=== PATIENT | male | born 1960 | race African-American/Black ===

== ENCOUNTER 2017-04-05 18:04 | Emergency (ER) | payer OTHER ==
[~2017-04-05] VITALS: Ht 180.3 cm; Wt 104.3 kg
[2017-04-05 18:28] VITALS: BP 110/60
[2017-04-05 19:08] LABS: Basophils # (auto) 0 uL; Basophils % (auto) 0.7 % (0.0-2.0); Eosinophils # (auto) 0.1 uL; Hematocrit 40.1 % (41.0-53.0); Hemoglobin 13.2 g/dL (13.5-17.5); Lymphocytes # (auto) 2.1 uL; Lymphocytes % (auto) 30.5 % (10.0-50.0); Mean Corpuscular Hemoglobin 27.1 pg (28.0-32.0); Mean Corpuscular Hgb Conc. 33.1 g/dL (32.0-36.0); Mean Corpuscular Volume 82.1 fL (80.0-100.0); Monocytes # (auto) 0.5 uL; Monocytes % (auto) 7.7 % (0.0-12.0); Neutrophils % (auto) 59.1 % (37.0-80.0); Nucleated Red Blood Cells % 0.1 %; Platelet Count (auto) 301 10^3/uL (140-450); Red Blood Cells 4.88 10^6/uL (4.5-5.90); Red Cell Distribution Width 15.2 % (11.8-14.3); White Blood Cell 6.8 10^3/uL (4.4-10.8)
[2017-04-05 19:22] LABS: Alanine Aminotransferase 18 U/L (16-61); Albumin 3.4 g/dL (3.4-5.0); Alkaline Phosphatase 66 U/L (45-117); Anion Gap 6 (5-15); Aspartate Aminotransferase 11 U/L (15-37); BUN/Creatinine Ratio 12.9; Bilirubin, Total 0.3 mg/dL (0.2-1.0); Blood Urea Nitrogen 15 mg/dL (7-18); Calcium 7.9 mg/dL (8.5-10.1); Carbon Dioxide 24 mmol/L (21-32); Chloride 110 mmol/L (98-107); GFR African American 83 mL/min; GFR Non-African American 69 mL/min; Glucose 93 mg/dL (74-106); Potassium 3.9 mmol/L (3.5-5.1); Sodium 140 mmol/L (136-145)
== END 2017-04-05 23:46 | disposition left against medical advice (07) ==
LOC: ER 18:04
DX: R07.9 Chest pain, unspecified (principal); Z53.21 Procedure and treatment not carried out due to patient leaving prior to being seen by health care provider
CPT/HCPCS: 36415; 80053; 84484; 85025; 93005

== ENCOUNTER 2022-06-05 15:56 | Inpatient (IN) | payer OTHER ==
[~2022-06-05] VITALS: Ht 180.3 cm; Wt 112.4 kg
[2022-06-05] MEDS ORDERED: MORPHINE SULFATE 4 MG/ML SYR/VIAL IV ONE ×2 (16:15→23:15)
[2022-06-05] MEDS ORDERED: ASPirin 81 mg TAB PO ONE (16:15)
[2022-06-05] MEDS ORDERED: ONDANSETRON HCL 4 MG/2 ML VIAL IV ONE ×2 (16:15→23:15)
[2022-06-05 17:12] LABS: Basophils # (auto) 0.1 10 ^3/uL (0-0.2); Basophils % (auto) 0.7 % (0.0-2.0); Eosinophils # (auto) 0.1 10 ^3/uL (0-0.8); Eosinophils % (auto) 1.5 % (0.0-7.0); Hematocrit 39.4 % (41.0-53.0); Hemoglobin 12.8 g/dL (13.5-17.5); Mean Corpuscular Hemoglobin 26.9 pg (28.0-32.0); Mean Corpuscular Hgb Conc. 32.5 g/dL (32.0-36.0); Mean Corpuscular Volume 82.8 fL (80.0-100.0); Monocytes # (auto) 0.5 10 ^3/uL (0-1.3); Monocytes % (auto) 6.5 % (0.0-12.0); Neutrophils # (auto) 4.4 10 ^3/uL (1.6-8.6); Neutrophils % (auto) 54.3 % (37.0-80.0); Nucleated Red Blood Cells % 0.1 %; Red Blood Cells 4.76 10^6/uL (4.5-5.90); Red Cell Distribution Width 14.5 % (11.8-14.3); White Blood Cell 8.1 10^3/uL (4.4-10.8)
[2022-06-05] MEDS ORDERED: MORPHINE SULFATE INJ 2 MG/ml SYRG IM ONE (17:30)
[2022-06-05] MEDS ORDERED: ONDANSETRON HCL 4 MG/2 ML VIAL IM ONE (17:30)
[2022-06-05 17:34] LABS: Albumin 3.3 g/dL (3.4-5.0); Calcium 8.6 mg/dL (8.5-10.1); Magnesium 2.4 mg/dL (1.6-2.6); Potassium 3.6 mmol/L (3.5-5.1)
[2022-06-05 17:38] LABS: BUN/Creatinine Ratio 9.7 (10.0-20.0); Bilirubin, Total 0.4 mg/dL (0.2-1.0); Total Protein 6.2 g/dL (6.4-8.2)
[2022-06-05 23:42] LABS: Urine Bacteria NONE SEEN /hpf (None Seen); Urine Blood Negative /uL (Negative); Urine Hyaline Cast FEW /lpf (0 - 2); Urine Mucus FEW (None Seen); Urine Specific Gravity 1.025 (1.001-1.035); Urine WBC 4 /hpf (0 - 3)
[2022-06-06] MEDS ORDERED: DOCUSATE SOD 100 MG CAP PO PRN (02:00)
[2022-06-06] MEDS ORDERED: HYDROcodone-ACET 5/325MG TAB PO PRN (02:00)
[2022-06-06] MEDS ORDERED: MORPHINE SULFATE INJ 2 MG/ml SYRG IV PRN (02:00)
[2022-06-06] MEDS ORDERED: ACETAMINOPHEN 325 MG TAB PO PRN (02:00)
[2022-06-06] MEDS ORDERED: NITROGLYCERIN 0.4 MG SL TAB SL PRN (02:00)
[2022-06-06] MEDS: SODIUM CHLOR 0.9% PF (SALINE LOCK) 10ML VIAL/SYR IV SCH ×3 (06:04→20:59)
[2022-06-06 07:48] LABS: Basophils # (auto) 0 10 ^3/uL (0-0.2); Basophils % (auto) 0.6 % (0.0-2.0); Eosinophils # (auto) 0.2 10 ^3/uL (0-0.8); Eosinophils % (auto) 2.3 % (0.0-7.0); Hematocrit 40.5 % (41.0-53.0); Hemoglobin 13.3 g/dL (13.5-17.5); Lymphocytes # (auto) 2.5 10 ^3/uL (0.4-5.4); Lymphocytes % (auto) 36.7 % (10.0-50.0); Mean Corpuscular Hemoglobin 27.3 pg (28.0-32.0); Mean Corpuscular Hgb Conc. 32.7 g/dL (32.0-36.0); Mean Corpuscular Volume 83.5 fL (80.0-100.0); Monocytes # (auto) 0.6 10 ^3/uL (0-1.3); Monocytes % (auto) 8.4 % (0.0-12.0); Neutrophils # (auto) 3.6 10 ^3/uL (1.6-8.6); Nucleated Red Blood Cells % 0.1 %; Red Blood Cells 4.85 10^6/uL (4.5-5.90); Red Cell Distribution Width 14.8 % (11.8-14.3); White Blood Cell 6.9 10^3/uL (4.4-10.8)
[2022-06-06 08:14] LABS: Potassium 4.1 mmol/L (3.5-5.1)
[2022-06-06 08:29] LABS: Albumin 3.6 g/dL (3.4-5.0); BUN/Creatinine Ratio 11.9 (10.0-20.0); Bilirubin, Total 0.4 mg/dL (0.2-1.0); Calcium 8.9 mg/dL (8.5-10.1)
[2022-06-06] MEDS: ONDANSETRON HCL 4 MG/2 ML VIAL IV PRN (08:35)
[2022-06-06] MEDS: MORPHINE SULFATE INJ 2 MG/ml SYRG IV PRN ×3 (08:36→22:28)
[2022-06-06] MEDS: ASPirin 81 mg TAB PO SCH (10:00)
[2022-06-06] MEDS ORDERED: GABA300C10 PO (10:09)
[2022-06-06] MEDS ORDERED: TRAZ-184 PO (10:09)
[2022-06-06] MEDS ORDERED: MET50T PO (10:09)
[2022-06-06] MEDS ORDERED: BACL10TA PO (10:09)
[2022-06-06] MEDS ORDERED: ATO40T PO (10:09)
[2022-06-06] MEDS ORDERED: SENN-62 PO (10:09)
[2022-06-06] MEDS ORDERED: MELA3TAB27 PO (10:09)
[2022-06-06] MEDS ORDERED: DULO20CA PO (10:09)
[2022-06-06] MEDS ORDERED: CHOL200031 PO (10:09)
[2022-06-06 14:22] VITALS: BP 136/78
[2022-06-06 14:24] VITALS: BP 136/78
[2022-06-06 17:00] VITALS: BP 137/81
[2022-06-06 20:00] VITALS: BP 139/78
[2022-06-06] MEDS: ATORVASTATIN 20 MG TAB PO SCH (21:00)
[2022-06-06 22:00] VITALS: BP 139/78
[2022-06-07 05:00] VITALS: BP 131/65
[2022-06-07] MEDS: SODIUM CHLOR 0.9% PF (SALINE LOCK) 10ML VIAL/SYR IV SCH ×3 (05:15→21:32)
[2022-06-07 06:06] LABS: Basophils # (auto) 0 10 ^3/uL (0-0.2); Basophils % (auto) 0.5 % (0.0-2.0); Eosinophils # (auto) 0.3 10 ^3/uL (0-0.8); Eosinophils % (auto) 4.1 % (0.0-7.0); Hematocrit 39.3 % (41.0-53.0); Hemoglobin 12.9 g/dL (13.5-17.5); Lymphocytes # (auto) 2.2 10 ^3/uL (0.4-5.4); Lymphocytes % (auto) 35.1 % (10.0-50.0); Mean Corpuscular Hemoglobin 27.4 pg (28.0-32.0); Mean Corpuscular Hgb Conc. 32.9 g/dL (32.0-36.0); Mean Corpuscular Volume 83.2 fL (80.0-100.0); Monocytes # (auto) 0.5 10 ^3/uL (0-1.3); Monocytes % (auto) 8.4 % (0.0-12.0); Neutrophils # (auto) 3.2 10 ^3/uL (1.6-8.6); Neutrophils % (auto) 51.9 % (37.0-80.0); Nucleated Red Blood Cells % 0.1 %; Red Blood Cells 4.72 10^6/uL (4.5-5.90); Red Cell Distribution Width 14.8 % (11.8-14.3); White Blood Cell 6.2 10^3/uL (4.4-10.8)
[2022-06-07 06:24] LABS: Potassium 3.8 mmol/L (3.5-5.1)
[2022-06-07 06:34] LABS: Albumin 3.2 g/dL (3.4-5.0); BUN/Creatinine Ratio 9.4 (10.0-20.0); Bilirubin, Total 0.5 mg/dL (0.2-1.0); Calcium 8.6 mg/dL (8.5-10.1); Total Protein 6.2 g/dL (6.4-8.2)
[2022-06-07 09:00] VITALS: BP 149/77
[2022-06-07] MEDS: ASPirin 81 mg TAB PO SCH (09:23)
[2022-06-07] MEDS: MORPHINE SULFATE INJ 2 MG/ml SYRG IV PRN ×3 (09:24→22:32)
[2022-06-07 13:05] VITALS: BP 149/77
[2022-06-07] MEDS: GABAPENTIN 300 MG CAP PO SCH ×2 (14:20→21:32)
[2022-06-07] MEDS: BACLOFEN 10 MG TAB PO SCH ×2 (14:20→21:31)
[2022-06-07 16:51] VITALS: BP 148/90
[2022-06-07] MEDS: ATORVASTATIN 20 MG TAB PO SCH (21:32)
[2022-06-07] MEDS: PANTOPRAZOLE 40 MG TAB PO SCH (21:32)
[2022-06-07] MEDS: METOPROLOL TARTRATE 25 MG TAB PO SCH (21:38)
[2022-06-07 22:00] VITALS: BP 125/83
[2022-06-07] MEDS ORDERED: traZODone HCL 50 MG TAB PO SCH (22:00)
[2022-06-08 05:00] VITALS: BP 95/75
[2022-06-08] MEDS: GABAPENTIN 300 MG CAP PO SCH ×2 (05:14→14:04)
[2022-06-08] MEDS: SODIUM CHLOR 0.9% PF (SALINE LOCK) 10ML VIAL/SYR IV SCH ×2 (05:14→13:13)
[2022-06-08] MEDS: BACLOFEN 10 MG TAB PO SCH ×2 (05:14→14:04)
[2022-06-08] MEDS: ATORVASTATIN 20 MG TAB PO SCH (05:36)
[2022-06-08] MEDS: MORPHINE SULFATE INJ 2 MG/ml SYRG IV PRN ×2 (05:37→12:26)
[2022-06-08 09:00] VITALS: BP 134/91
[2022-06-08] MEDS ORDERED: DULoxetine HCL 30 MG CAP PO SCH (10:00)
[2022-06-08] MEDS: ASPirin 81 mg TAB PO SCH (10:42)
[2022-06-08] MEDS: PANTOPRAZOLE 40 MG TAB PO SCH (10:42)
[2022-06-08] MEDS: METOPROLOL TARTRATE 25 MG TAB PO SCH (10:43)
[2022-06-08] MEDS: ONDANSETRON HCL 4 MG/2 ML VIAL IV PRN (12:34)
[2022-06-08 13:20] VITALS: BP 136/92
[2022-06-08] MEDS ORDERED: ASPI-325 PO (15:33)
[2022-06-08] MEDS ORDERED: ATOR20TA50 PO (15:33)
[2022-06-08] MEDS ORDERED: MET25T PO (15:33)
[2022-06-08 16:13] VITALS: BP 133/96
[2022-06-08 16:22] VITALS: BP 133/96
[2022-06-08 17:13] VITALS: BP 138/71
== END 2022-06-08 18:30 | disposition home or self-care (01) | DRG 311 ==
LOC: EDBD 15:56 → ER 15:56 → TELE 06-06 01:51 → TELE-WESTW 06-06 13:33
PROVIDERS: ADMIT Nurse Practitioner Family; ATTEND Internal Medicine
DX: I24.9 Acute ischemic heart disease, unspecified (principal); I10 Essential (primary) hypertension; F32.A Depression, unspecified; F43.10 Post-traumatic stress disorder, unspecified; J44.9 Chronic obstructive pulmonary disease, unspecified; Z86.73 Personal history of transient ischemic attack (TIA), and cerebral infarction without residual deficits; Z87.442 Personal history of urinary calculi; E78.5 Hyperlipidemia, unspecified
CPT/HCPCS: 36415; 70450; 71045; 80053; 81001; 83735; 83880; 84484; 85025; 85379; 93005; 93306; 96372; 96374; 96375; 96376; G0378; J2405

== ENCOUNTER 2024-09-04 17:17 | Inpatient (IN) | payer OTHER ==
[~2024-09-04] VITALS: Ht 180.3 cm; Wt 99.2 kg
[~2024-09-04 17:17] MED LIST: ASPI-325 PO; ATOR-507 PO; ATOR20TA50 PO; BACL10TA PO; CHOL200031 PO; DULO20CA PO; GABA-1250 PO; MELA3TAB27 PO; MET25T PO; SENN-62 PO; TRAZ-184 PO
--- NOTE | 2024-09-04 17:27 | ECG ---
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
--- NOTE | 2024-09-04 17:33 | ED.PDOC ---
HPI Comments 63 y.o male with PMHx of HTN, asthma, and CVA x2, presents to the ED for a chief complaint of chest pain associated with nausea, SOB and a generalized headache that started last night. Patient reports chest pain is localized to the center and radiates to his left arm. Patient was woken up by chest pain, described as sharp, constant and rating a 7/10 on the pain scale. Patient denies any vomiting, fever, chills, leg swelling, back pain, or abdominal pain. He reports daily use of marijuana for chronic neck pain. Chief Complaint: Chest Pain Time Seen by MD: 17:25 Reviewed Notes: Nurses Notes, Medications, Allergies Allergies: Coded Allergies: NO KNOWN ALLERGIES (Unverified , 04/05/17) Home Meds Active Scripts Atorvastatin Calcium (ATORVASTATIN CALCIUM) 20 Mg Tab, 20 MG PO HS for 30 Days, #30 TAB 1 Refill Prov:BRONSONMANFRED Evy DO 06/08/22 Metoprolol Tartrate (Lopressor) 25 Mg Tb, 25 MG PO BID for 30 Days, #60 TAB 1 Refill Prov:SEFERINO BRONSONMY Evy DO 06/08/22 Aspirin (Aspirin Low Dose) 81 Mg Tab, 81 MG PO DAILY for 30 Days, #30 TAB 1 Refill Prov:MANFRED BRONSON Evy DO 06/08/22 Reported Medications Baclofen (Baclofen) 10 Mg Tab, 10 MG PO TID, TAB 06/06/22 Sennosides-Docusate Sodium (Senokot S) 1 Tab Tab, 1 TAB PO BID, #30 TAB 06/06/22 Melatonin (KP MELATONIN) 3 Mg Tab, 3 MG PO HSPRN, TAB 06/06/22 Trazodone HCl (Trazodone Hydrocloride) 100 Mg Tab, 100 MG PO HS, TAB 06/06/22 Duloxetine Hcl (Cymbalta) 20 Mg Cap, 1 CAP PO DAILY, #30 CAP 2 Refills 06/06/22 Cholecalciferol (D3) 2,000 Unit Cap, 2000 UNIT PO DAILY, CAP 06/06/22 Atorvastatin Calcium (Lipitor) 40 Mg Tab, 1 TAB PO QPM, #90 TAB 1 Refill 06/06/22 Gabapentin (Gabapentin) 300 Mg Cap, 1 CAP PO TID, #90 CAP 5 Refills 06/06/22 Information Source: Patient Mode of Arrival: Wheelchair Severity: Moderate Timing: Days (1) Duration: Since onset Location: Chest (L), Substernal Radiation: Arm (L) Quality: Sharp Onset: At Rest Cardiac Risk Factors: HTN PE Risk Factors: None History of: None Associated Signs and Symptoms: SOB, N/V (nausea only ), Other (headache ) Past Medical History PAST MEDICAL HISTORY: Asthma, CVA (2), HTN, Kidney Stones Surgical History (Other): back and neck Family History Family History: Family hx of Cancer Social History Smoker: Non-Smoker Alcohol: Denies ETOH Use Drugs: Marijuana Lives In: Home Constitutional: denies: chills, diaphoresis, fatigue, fever, malaise, sweats, weakness, others EENTM: denies: blurred vision, double vision, ear bleeding, ear discharge, ear drainage, ear pain, ear ringing, eye pain, eye redness, hearing loss, mouth pain, mouth swelling, nasal discharge, nose bleeding, nose congestion, nose pain, photophobia, tearing, throat pain, throat swelling, voice changes, others Respiratory: reports: SOB at rest, shortness of breath; denies: cough, hemopty sis, orthopnea, SOB with excertion, stridor, wheezing, others Cardiovascular: reports: chest pain; denies: dizzy spells, diaphoresis, Dyspnea on exertion, edema, irregular heart beat, left arm pain, lightheadedness, palpitations, PND, syncope, others Gastrointestinal: reports: nausea; denies: abdomen distended, abdominal pain, blood streaked bowels, constipated, diarrhea, dysphagia, difficulty swallowing, hematemesis, melena, poor appetite, poor fluid intake, rectal bleeding, rectal pain, vomiting, others Genitourinary: denies: burning, dysuria, flank pain, frequency, hematuria, incontinence, penile discharge, penile sore, pain, testicle pain, testicle swelling, urgency, others Neurological: reports: headache; denies: dizziness, fainting, left sided numbness, left sided weakness, numbness, paresthesia, pre-existing deficit, right sided numbness, right sided weakness, seizure, speech problems, tingling, tremors, weakness, others Musculoskeletal: denies: back pain, gout, joint pain, joint swelling, muscle pain, muscle stiffness, neck pain, others Integumetry: denies: bruises, change in color, change in hair/nails, dryness, laceration, lesions, lumps, rash, wounds, others Allergic/Immunocompromised: denies: Difficulty Healing, Frequent Infections, Hives, Itching, others Hematologic/Lymphatic: denies: anemia, blood clots, easy bleeding, easy bruising, swollen glands, others Endocrine: denies: excessive hunger, excessive sweating, excessive thirst, excessive urination, flushing, intolerance to cold, intolerance to heat, unexplained weight gain, unexplained weight loss, others Psychiatric: denies: anxiety, bipolar disorder, depression, hopeless, panic disorder, schizophrenia, sleepless, suicidal, others All Other Systems: Reviewed and Negative Physical Exam General Appearance: Moderate Distress HEENT: Normal ENT Inspection, Pharynx Normal, TMs Normal Neck: Full Range of Motion, Non-Tender, Normal, Normal Inspection Respiratory: Chest Non-Tender, Lungs Clear, No Accessory Muscle Use, No Respiratory Distress, Normal Breath Sounds Cardiovascular: No Edema, No JVD, No Murmur, No Gallop, Normal Peripheral P ulses, Regular Rate/Rhythm Breast Exam: Deferred Gastrointestinal: No Organomegaly, Non Tender, No Pulsatile Mass, Normal Bowel Sounds, Soft Genitalia: Deferred Pelvic: Deferred Rectal: Deferred Extremities: No calf tenderness, Normal capillary refill, Normal inspection, Normal range of motion, Non-tender, No pedal edema Musculoskeletal : Apperance: Normal Neurologic: Alert, executive vice president II-XII nml as Tested, Motor Weakness, Normal Affect, Normal Mood, No Sensory Deficits Cerebellar Function: Normal Reflexes: Normal Skin: Dry, Normal Color, Warm Lymphatic: No Adenopathy EKG EKG : Pulse Rate (adult): 64 [place]: Normal Cardiac Rhythm: NSR Was a procedure done? Was a procedure done?: No CP Differential Dx Differential Diagnosis: N/A Differential Diagnosis: Angina, Chest Wall Pain, Costochondritis, Gastritis, Pericarditis, Pneumonia X-Ray, Labs, Meds, VS Vital Signs Date Time Temp Pulse Resp B/P (MAP) Pulse Ox O2 Delivery O2 Flow Rate FiO2 09/04/24 18:35 61 09/04/24 17:32 64 09/04/24 17:26 64 09/04/24 17:20 98.9 80 15 129/80 (96) 96 98.9 Lab Test 09/04/24 18:45 09/04/24 17:26 Range/Units Troponin I High Sensitivity < 3 L 3 L </=54 ng/L White Blood Count 7.2 4.4-10.8 10^3/uL Red Blood Count 5.06 4.5-5.90 10^6/uL Hemoglobin 14.4 13.5-17.5 g/dL Hematocrit 43.4 41.0-53.0 % Mean Corpuscular Volume 85.7 80.0-100.0 fL Mean Corpuscular Hemoglobin 28.4 28.0-32.0 pg Mean Corpuscular Hemoglobin Concent 33.2 32.0-36.0 g/dL Red Cell Distribution Width 15.8 H 11.8-14.3 % Platelet Count 253 140-450 10^3/uL Mean Platelet Volume 7.9 6.9-10.8 fL Neutrophils (%) (Auto) 46.3 37.0-80.0 % Lymphocytes (%) (Auto) 44.9 10.0-50.0 % Monocytes (%) (Auto) 5.9 0.0-12.0 % Eosinophils (%) (Auto) 2.2 0.0-7.0 % Basophils (%) (Auto) 0.7 0.0-2.0 % Neutrophils # (Auto) 3.4 1.6-8.6 10 ^3/uL Lymphocytes # (Auto) 3.2 0.4-5.4 10 ^3/uL Monocytes # (Auto) 0.4 0-1.3 10 ^3/uL Eosinophils # (Auto) 0.2 0-0.8 10 ^3/uL Basophils # (Auto) 0 0-0.2 10 ^3/uL Nucleated Red Blood Cells 0.1 % Sodium Level 143 136-145 mmol/L Potassium Level 4.4 3.5-5.1 mmol/L Chloride Level 110 H 98-107 mmol/L Carbon Dioxide Level 29 20-31 mmol/L Anion Gap 4 L 5-15 Blood Urea Nitrogen 12 9-23 mg/dL Creatinine 1.22 0.700-1.30 mg/dL Glomerular Filtration Rate Calc 66 >90 mL/min BUN/Creatinine Ratio 9.8 L 10.0-20.0 Serum Glucose 89 74-106 mg/dL Calcium Level 9.6 8.7-10.4 mg/dL B-Type Natriuretic Peptide 65.56 0-100 pg/mL The patient's CBC is within normal limits The chemistry panel is within normal limits The BNP is within normal limits The troponin level is three We are repeating the troponin at this time The patient is being admitted The chest x-ray shows: No sign of any abnormalities. The patient was admitted Images Reviewed?: Images reviewed and evaluated by me Time of 1ST Reevaluation: 18:30 Reevaluation 1ST: Unchanged Patient Education/Counseling: Diagnosis, Treatment, Prognosis Family Education/Counseling: No Family Present SEPSIS Sepsis Screen Physician Orders Electrocardigram (09/04/24 20:19) Heplock Iv (09/04/24 17:29) Car Hiker (09/04/24 17:29) Blood Pressure (09/04/24 17:29) Pulse Oximetry (09/04/24 17:29) Chest Two Views Routine (09/04/24 17:29) Urinalysis (09/04/24 17:29) Vital Signs Date Time Temp Pulse Resp B/P (MAP) Pulse Ox O2 Delivery O2 Flow Rate FiO2 09/04/24 18:35 61 09/04/24 17:32 64 09/04/24 17:26 64 09/04/24 17:20 98.9 80 15 129/80 (96) 96 98.9 Laboratory Tests Test 09/04/24 17:26 White Blood Count 7.2 10^3/uL (4.4-10.8) Departure 1 Departure Time of Disposition: 18:49 Impression: Primary Impression: Acute coronary syndrome Disposition: 09 ADMITTED INPATIENT Admit to: Tele Condition: Fair Critical Care Note Critical Care Time?: Yes (45 min-critical care time only) Stability Stability form required: Yes Unstable for transfer: Telemetry monitoring (Telemetry monitoring required), ED Physician Assesment (Clinical assesment) Heart Score Heart Score: Heart Score Response (Comments) Value History Highly Suspicious 2 EKG Normal 0 Age >65 2 Risk Factors >3 or Hx ASHD 2 Troponin Normal limit 0 Total 6 I personally scribed for HIREN PIÑA MD ([email or web address]) on 09/04/24 at 17:32. Electronically submitted by Onelia Tatum ([facility]). HIREN PIÑA MD Sep 04, 2024 17:32
[2024-09-04 17:51] LABS: Potassium 4.4 mmol/L (3.5-5.1); Sodium 143 mmol/L (136-145)
[2024-09-04 17:52] LABS: Anion Gap 4 (5-15); Calcium 9.6 mg/dL (8.7-10.4); Carbon Dioxide 29 mmol/L (20-31)
[2024-09-04 17:57] LABS: BUN/Creatinine Ratio 9.8 (10.0-20.0); Blood Urea Nitrogen 12 mg/dL (9-23); Glucose 89 mg/dL (74-106)
[2024-09-04 18:22] LABS: Chloride 110 mmol/L (98-107)
[2024-09-04 18:27] LABS: Hematocrit 43.4 % (41.0-53.0); Hemoglobin 14.4 g/dL (13.5-17.5); Mean Corpuscular Hemoglobin 28.4 pg (28.0-32.0); Mean Corpuscular Volume 85.7 fL (80.0-100.0); Nucleated Red Blood Cells % 0.1 %
--- NOTE | 2024-09-04 18:36 | ECG ---
[facility] Test Date: 2024-09-04 Test Time: 18:35:33 Pat Name: DOM MCKEON Department: ED Room: 0219T Gender: M Grease Buffer: yasmani : 1960 Requested By: HIREN PIÑA Order Number: [id number] Reading MD: Rob Holden Measurements Intervals [place] Rate: 61 P: 83 MS: 180 QRS: 34 QRSD: 84 T: 89 QT: 412 QTc: 415 Interpretive Statements Sinus rhythm Atrial premature complexes Borderline T abnormalities, lateral leads Electronically Signed On 09-07-2024 15:54:43 PDT by Rob Holden Please click the below link to view image of tracing.
--- NOTE | 2024-09-04 18:47 | DVH ---
CHEST TWO VIEWS REASON FOR EXAM: Chest pain COMPARISON: 06/05/2022 TECHNIQUE: PA and lateral views of the chest are obtained. FINDINGS: The cardiomediastinal silhouette is within normal limits for size. There is no focal airsp quinn disease. There is no pleural effusion. No acute osseous abnormality is identified. There is multi level degenerative change in the spine. IMPRESSION: No radiographic evidence of acute cardiopulmonary process.
[2024-09-04] MEDS ORDERED: NITROGLYCERIN 0.4 MG SL TAB SL PRN (19:45)
[2024-09-04] MEDS ORDERED: ONDANSETRON HCL 4 MG/2 ML VIAL IV PRN (19:45)
[2024-09-04] MEDS ORDERED: ACETAMINOPHEN 325 MG TAB PO PRN (19:45)
--- NOTE | 2024-09-04 21:25 | DVHHP2 ---
History of Present Illness Reason for Visit: Chest pain History of Present Illness 63-year-old male presents for evaluation of chest pain. Patient reports a one day history of left-sided sharp chest pain that radiates to his left arm. He also reports nausea with shortness for breath. Currently rates the pain at 5/10 intensity. No cough or fever. No other acute complaints. Past Medical History CVA, kidney stones, asthma Past Surgical History Denies Family History Noncontributory Smoke: No ALCOHOL: none Drugs: None Lives: with Family Review of Systems Review of Systems Review of systems are currently negative otherwise addressed in HPI. Allergies: Coded Allergies: NO KNOWN ALLERGIES (Unverified , 04/05/17) Medications Current Medications Medications Dose Ordered Sig/Isai Route Start Time Stop Time Status Last Admin Dose Admin Aspirin 81 mg DAILY PO 09/05/24 10:00 Atorvastatin Calcium 40 mg HS PO 09/04/24 22:00 Gabapentin 300 mg TID PO 09/04/24 22:00 Metoprolol Tartrate 25 mg BID PO 09/04/24 22:00 Ondansetron HCl 4 mg Q4HP PRN IV 09/04/24 19:45 Acetaminophen 650 mg Q6HP PRN PO 09/04/24 19:45 Nitroglycerin 0.4 mg Q5MINP PRN SL 09/04/24 19:45 Morphine Sulfate 2 mg Q30M PRN IV 09/04/24 19:45 Exam Vital Signs Vital Signs Date Time Temp Pulse Resp B/P (MAP) Pulse Ox O2 Delivery O2 Flow Rate FiO2 09/04/24 21:10 98.7 62 16 120/65 (83) 98 98.7 Exam Gen: 63-year-old male in no apparent distress. Skin: Warm, dry, normal color and texture, no rash. HEENT: Normocephalic atraumatic, mucous membranes moist and pink. Neck: Cervical and supraclavicular nodes normal without enlargement, trachea is midline, thyroid gland is normal without masses. Pulmonary: Clear to auscultation and percussion bilaterally. Cardiac: Regular rate and rhythm. No murmur Abdomen: Soft, nontender, nondistended, bowel sounds present all 4 quadrants, no guarding, no rigidity, no organomegaly. Extremities: No cyanosis, clubbing, no edema Neuro: Cranial nerves II through XII grossly intact, normal affect and speech, no focal motor deficits. Labs/Xrays ORDERING PHYSICIAN: HIREN PIÑA MD PROCEDURE(s): CXR2 - CHEST TWO VIEWS ROUTINE REASON: CP ORDER NUMBER(s): [id number], ACCESSION NUMBER(s): [id number] CHEST TWO VIEWS REASON FOR EXAM: Chest pain COMPARISON: 06/05/2022 TECHNIQUE: PA and lateral views of the chest are obtained. FINDINGS: The cardiomediastinal silhouette is within normal limits for size. There is no focal airspace disease. There is no pleural effusion. No acute osseous abnormality is identified. There is multilevel degenerative change in the spine. IMPRESSION: No radiographic evidence of acute cardiopulmonary process. Labs Test 09/04/24 18:45 09/04/24 17:26 Range/Units Troponin I High Sensitivity < 3 L </=54 ng/L White Blood Count 7.2 4.4-10.8 10^3/uL Red Blood Count 5.06 4.5-5.90 10^6/uL Hemoglobin 14.4 13.5-17.5 g/dL Hematocrit 43.4 41.0-53.0 % Mean Corpuscular Volume 85.7 80.0-100.0 fL Mean Corpuscular Hemoglobin 28.4 28.0-32.0 pg Mean Corpuscular Hemoglobin Concent 33.2 32.0-36.0 g/dL Red Cell Distribution Width 15.8 H 11.8-14.3 % Platelet Count 253 140-450 10^3/uL Mean Platelet Volume 7.9 6.9-10.8 fL Neutrophils (%) (Auto) 46.3 37.0-80.0 % Lymphocytes (%) (Auto) 44.9 10.0-50.0 % Monocytes (%) (Auto) 5.9 0.0-12.0 % Eosinophils (%) (Auto) 2.2 0.0-7.0 % Basophils (%) (Auto) 0.7 0.0-2.0 % Neutrophils # (Auto) 3.4 1.6-8.6 10 ^3/uL Lymphocytes # (Auto) 3.2 0.4-5.4 10 ^3/uL Monocytes # (Auto) 0.4 0-1.3 10 ^3/uL Eosinophils # (Auto) 0.2 0-0.8 10 ^3/uL Basophils # (Auto) 0 0-0.2 10 ^3/uL Nucleated Red Blood Cells 0.1 % Sodium Level 143 136-145 mmol/L Potassium Level 4.4 3.5-5.1 mmol/L Chloride Level 110 H 98-107 mmol/L Carbon Dioxide Level 29 20-31 mmol/L Anion Gap 4 L 5-15 Blood Urea Nitrogen 12 9-23 mg/dL Creatinine 1.22 0.700-1.30 mg/dL Glomerular Filtration Rate Calc 66 >90 mL/min BUN/Creatinine Ratio 9.8 L 10.0-20.0 Serum Glucose 89 74-106 mg/dL Calcium Level 9.6 8.7-10.4 mg/dL B-Type Natriuretic Peptide 65.56 0-100 pg/mL SEPSIS Sepsis Screen Date sepsis recognized/suspect: Sep 04, 2024 Time Sepsis recognized/suspect: 1699 Recent Procedure: No On Antibiotic Therapy: No Respiratory Rate >20: No Heart Rate >90: No Temp<36 C (96.8 F) or >38.3 C: No SBP <90 or MAP <65 mmHG: No New Acute Mental Status Change: No Is the patient on CPAP, BIPAP,: No Physician Orders Electrocardigram (09/04/24 20:19) Heplock Iv (09/04/24 17:29) Doctor Podiatric Medicine (09/04/24 17:29) Blood Pressure (09/04/24 17:29) Pulse Oximetry (09/04/24 17:29) Chest Two Views Routine (09/04/24 17:29) Urinalysis (09/04/24 17:29) Aspirin Tablet (09/05/24 10:00) Atorvastatin (Lipitor) (09/04/24 22:00) Gabapentin Capsule (Neurontin Capsule) (09/04/24 22:00) Metoprolol Tartrate Tablet (Lopressor Ta (09/04/24 22:00) Basic Metabolic Panel (09/05/24 04:00) Admit (09/04/24 19:39) Ondansetron Hcl (Zofran) (09/04/24 19:45) Cardiac Diet-2gna,Lofat,Lochol (09/05/24 Breakfast) Echo 2d Mode Cardiac Dop (09/04/24 19:39) Condition: Fair (09/04/24 19:39) Acetaminophen Tablet (Tylenol Tablet) (09/04/24 19:45) Bedrest With Bathroom Privileg (09/04/24 19:39) Nitroglycerin Sublingual (Ntrostat Subli (09/04/24 19:45) Morphine Sulfate Injection (09/04/24 19:45) Stat Ekg For Chest Pain (09/04/24 19:39) Notify Of Changes From Base (09/04/24 19:39) Brass Finisher For 24 Hours (09/04/24 19:39) Emergency Dysrhythmia Protocol (09/04/24:39) Rhythm Strips Once Every Shift (09/04/24 19:39) Oxygen By Nasal Cannula (09/04/24:39) Thyroid Stimulating Hormone (09/04/24 21:21) Lipid Panel (09/04/24 21:21) Vital Signs Date Time Temp Pulse Resp B/P (MAP) Pulse Ox O2 Delivery O2 Flow Rate FiO2 09/04/24 21:10 98.7 62 16 120/65 (83) 98 98.7 09/04/24 20:09 66 09/04/24 18:35 61 09/04/24 17:32 64 09/04/24 17:26 64 09/04/24 17:20 98.9 80 15 129/80 (96) 96 98.9 Laboratory Tests Test 09/04/24 17:26 White Blood Count 7.2 10^3/uL (4.4-10.8) Assessment/Plan Assessment/Plan Assessment Chest pain rule out ACS Hypertension Plan Admit the patient to telemetry to the hospitalist ACS protocol Resume home medications Continue treatment per orders. Plan discussed with: Patient My Orders Orders - PIPPA REBOLLAR Procedure Category Date Status Time Aspirin Tablet PHA 09/05/24 In Process 10:00 Atorvastatin (Lipitor) PHA 09/04/24 In Process 22:00 Gabapentin Capsule PHA 09/04/24 In Process (Neurontin Capsule) 22:00 Metoprolol Tartrate PHA 09/04/24 In Process Tablet (Lopressor Ta 22:00 Basic Metabolic Panel LAB 09/05/24 Verified 04:00 Admit ADMIT 09/04/24 Transmitted 19:39 Ondansetron Hcl PHA 09/04/24 In Process (Zofran) 19:45 Cardiac DIET 09/05/24 Transmitted Diet-2gna,Lofat,Lochol Breakfast Echo 2d Mode Cardiac US 09/04/24 Logged DOP 19:39 Condition: Fair [facility] 09/04/24 In Process 19:39 Acetaminophen Tablet PHA 09/04/24 In Process (Tylenol Tablet) 19:45 Bedrest With Bathroom JENNIFER 09/04/24 In Process Privileg 19:[address] [facility] 09/04/24 In Process Sublingual (Ntrostat 19:[address] [facility] 09/04/24 In Process Injection 19:45 Stat Ekg For Chest [facility] 09/04/24 In Process Pain 19:39 Notify Of Changes [facility] 09/04/24 In Process From Base 19:39 Brass Finisher For [facility] 09/04/24 In Process 24 Hours 19:39 Emergency Dysrhythmia [facility] 09/04/24 In Process Protocol 19:39 Rhythm Strips Once [facility] 09/04/24 In Process Every Shift 19:39 Oxygen By Nasal RT 09/04/24 Transmitted Cannula 19:39 Thyroid Stimulating LAB 09/04/24 Verified Hormone 21:21 Lipid Panel LAB 09/04/24 Verified 21:21 Date of Service: Sep 04, 2024 Billing Provider: PIPPA REBOLLAR Common Visit Codes: [id number] INP/OBS CARE (HIGH) PIPPA REBOLLAR Sep 04, 2024 21:25
[2024-09-04 22:20] LABS: Triglycerides 90 mg/dL (< 150)
[2024-09-04 22:22] LABS: Cholesterol 105 mg/dL (< 200)
[2024-09-04 22:23] LABS: HDL Cholesterol 37 mg/dL (40-59)
[2024-09-04] MEDS: ATORVASTATIN 20 MG TAB PO SCH (22:36)
[2024-09-04] MEDS: GABAPENTIN 300 MG CAP PO SCH (22:37)
[2024-09-04] MEDS: METOPROLOL TARTRATE 25 MG TAB PO SCH (22:38)
[2024-09-04] MEDS: MORPHINE SULFATE 4 MG/ML SYR/VIAL IV ONE (22:39)
[2024-09-04] MEDS: ONDANSETRON HCL 4 MG/2 ML VIAL IV ONE (22:39)
[2024-09-04 22:48] VITALS: PULSE 63; RESP 18; O2SAT 98
[2024-09-05] VITALS (8 sets, daily range): BP systolic 135–155; BP diastolic 62–102; PULSE 49–65; RESP 16–19; TEMP 97.3–98.3; O2SAT 95–99
[2024-09-05] MEDS: MORPHINE SULFATE INJ 2 MG/ml SYRG IV PRN (04:48)
[2024-09-05 10:09] LABS: Anion Gap 4 (5-15); Carbon Dioxide 31 mmol/L (20-31); Sodium 142 mmol/L (136-145)
[2024-09-05 10:10] LABS: Calcium 9.5 mg/dL (8.7-10.4)
[2024-09-05 10:15] LABS: BUN/Creatinine Ratio 9.8 (10.0-20.0); Blood Urea Nitrogen 11 mg/dL (9-23); Glucose 95 mg/dL (74-106)
[2024-09-05 10:16] LABS: Chloride 107 mmol/L (98-107); Potassium 5.3 mmol/L (3.5-5.1)
[2024-09-05] MEDS: KETOROLAC TROMETH 30 MG/ML 1ML VIAL IV ONE (13:07)
--- NOTE | 2024-09-05 13:17 | DVHSR ---
APPROVED REPORT EXAM: Two-dimensional and M-mode echocardiogram with Doppler and color Doppler. Blood Pressure: 124/80 mmHg INDICATION Chest Pain RISK FACTORS Height: 5'11", Weight: 220 DIMENSIONS LVDd5.2 (3.8-5.7cm)LA (2D)4.2 (1.9-4.0cm)Aortic Root3.5 (2.0-3.7cm) LVDs3.7 (2.5-4.0cm)LA (MM) (1.9-4.0cm)Aortic Cusp Exc2.1 (1.5-2.0cm) EF (%) 54.0 (55-70%)Rt. Atrium3.0 (1.9-4.0cm)Asc. Aorta3.6 cm IVSd1.0 (0.7-1.1cm)RV (D)3.7 (1.8-2.4cm) PWd1.0 (0.7-1.1cm) Mitral Valve MitralMitral Stenosis E wave0.64m/sMV Mean GR.mmHg A wave0.76m/sMV Peak GR.mmHg E/A ratio0.82D MVAcm2 DECEL [id number] 1/2 Timems Aortic Valve Aortic ValveAortic Stenosis V10.85m/Ras Mean GR.3mmHg V21.09m/Ras Peak GR.5mmHg LVOT Diameter2.5 (1.8-2.4cm)Doppler AVA3.83cm2 Pulmonic Valve V20.88m/s Tricuspid Valve TR Velocity2.18m/s [id number] Conclusion lvef 55% normal rv and lv function normal atria no severe valve abnormaliites noted
--- NOTE | 2024-09-05 15:26 | DVHPNRES ---
Progress Note Date Seen: Sep 05, 2024 Resident Creating Document: NOLA GALICIA RESIDENT Medical Necessity Reason Pt with a Central, PICC or Fol: No Subjective Review of Systems Patient is a 63 year old male with prior medical history of hypertension, 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 He refers sudden onset of chest pain, concentrated in the left pectoral region radiating towards the back and his left arm, 10/10 intensity, with no aggravating nor relieving factors, associated with nausea, weakness, shortness of breath, and bandlike headache. He denies diaphoresis, vomiting, and palpitations. On evaluation in the ED, 12 lead EKG showed sinus rhythm, with premature atrial complexes, without ST changes. Initial labs show WBC 7.2, hemoglobin 14.4, sodium 143, potassium 4.4, BUN 12, creatinine 1.22, troponins negative, BNP 65.56. Chest x-ray shows no acute cardiopulmonary disease. Due suspicion of ACS, patient was started on aspirin and Lipitor and was admitted for further workup and monitoring. Surgical: Back surgery for herniated disc in 1984, Neck surgery in 1999 Social: The patient is a retired [employer] , refers daily marijuana use (1 joint), denies alcohol and tobacco. States he lives with his and daughter and feels safe. Patient seen at bedside. Patient reports persistence of chest pain, however he states it has improved to a 5/10. Additionally, continues to refer bandlike headache. Currently denies nausea, weakness, shortness of breath, diaphoresis, vomiting, and palpitations. On evaluation, patient refers occasional GERD symptoms. Follow-up labs within normal range, vitals were stable. Echocardiogram shows LVEF 55% with normal RV and LV function, and normal atria. Due possible suspicion of gastric or musculoskeletal origin, patient will be started on Maalox and Toradol. Review of Systems: Constitutional: Denies weight loss, fever and chills. HEENT: Denies changes in vision and hearing. Respiratory: Denies shortness of breath and cough Cardiovascular: Refers chest discomfort, denies palpitations GI: Denies abdominal distention, abdominal pain, diarrhea : Denies dysuria and urinary frequency. Musculoskeletal: Refers neck and back pain due to previous injury and surgery Skin: Denies rash and pruritus. Neurological: Refers headache, denies headache, vision or hearing problems Objective vital signs Vital Sign Date Time Temp Pulse Resp B/P (MAP) Pulse Ox O2 Delivery O2 Flow Rate FiO2 09/05/24 13:00 98.3 54 19 154/95 (114) 99 98.3 09/05/24 08:00 Room Air* 0 21 Total Intake and Output 09/04/24 09/04/24 09/05/24 15:00 23:00 07:00 Output Total 400 ml Balance -400 ml medications Current Medications Medications Dose Ordered Sig/Isai Route Start Time Stop Time Status Last Admin Dose Admin Aspirin 81 mg DAILY PO 09/05/24 10:00 09/05/24 09:40 81 MG Atorvastatin Calcium 40 mg HS PO 09/04/24 22:00 09/04/24 22:36 40 MG Gabapentin 300 mg TID PO 09/04/24 22:00 09/05/24 06:09 300 MG Metoprolol Tartrate 25 mg BID PO 09/04/24 22:00 09/05/24 09:42 25 MG Ondansetron HCl 4 mg Q4HP PRN IV 09/04/24 19:45 Acetaminophen 650 mg Q6HP PRN PO 09/04/24 19:45 Nitroglycerin 0.4 mg Q5MINP PRN SL 09/04/24 19:45 Morphine Sulfate 2 mg Q30M PRN IV 09/04/24 19:45 09/05/24 04:48 2 MG Examination General: The patient alert and oriented in person place and time. Patient following commands HEENT: Normocephalic, atraumatic, moist mucous membrane Respiratory/pulmonary: Pain to palpation of right pectoral region, Clear lungs bilaterally, vesicular murmurs present in almost all lung van, no associated crackles or wheezes. Cardiovascular: Normal RRR, normal S1 and S2 Abdomen: Abdomen nondistended, there is no pain to palpation in any of the abdominal quadrants, no palpable masses. Extremities: there is no peripheral edema present at the lower extremities. Peripheral pulses 3+ radial right, 3+ radials soft. 3+ dorsalis pedis right. 3+ dorsalis pedis left Skin: No rashes or pruritus, there is no sacral edema present at this time. Neurological: Intact cranial nerves with no focal neurologic deficits laboratory and microbiology Laboratory Tests 7/21/25 09:21 09/04/24 17:26 Test 09/05/24 09:21 Range/Units Serum Glucose 95 74-106 mg/dL Problem List/Assessment/Plan Problem List/Assessment/Plan Assessment and Plan: Acute Chest Pain, rule out ACS, possibly musculoskeletal -Aspirin 81 mg PO daily -Lipitor 40 mg PO daily -Morphine 2 mg IV Q30 min PRN -Nitroglycerin 0.4 mg SL q5 min PRN -Acetaminophen 650 mg PO q6 hours PRN -Echocardiogram: LVEF 55% with normal RV and LV function, and normal atria. -Toradol 15 mg IV once Possible GERD -Maalox plus 15 mL -Protonix 40 mg PO daily Hypertension -Metoprolol 25 mg PO BID Peripheral neuropathy -Continue home medications History of CVA DVT prophylaxis: Ambulatory Case discussed with Dr. Holcomb Goals of care discussed with the patient who states he understands and agrees. Plan discussed with: Patient My Orders My Orders Orders - NOLA GALICIA RESIDENT Procedure Category Date Status Time Potassium LAB 09/05/24 Logged 10:37 Date of Service: Sep 05, 2024 Billing Provider: CRISTINO HOLCOMB MD Common Visit Codes: [id number] INP/OBS CARE(HIGH) NOLA GALICIA RESIDENT Sep 05, 2024 15:26 CRISTINO HOLCOMB MD Sep 08, 2024 14:18
[2024-09-05] MEDS: MAALOX PLUS or MAALOX 30 ML PO ONE (17:29)
[2024-09-06 01:00] VITALS: BP 132/74; PULSE 56; RESP 18; TEMP 98.4; O2SAT 98
[2024-09-06 05:00] VITALS: BP 128/72; PULSE 56; RESP 18; TEMP 98; O2SAT 97
[2024-09-06] MEDS: PANTOPRAZOLE 40 MG TAB PO SCH (05:53)
[2024-09-06 07:27] LABS: Hematocrit 42.7 % (41.0-53.0); Hemoglobin 14.3 g/dL (13.5-17.5); Mean Corpuscular Hemoglobin 28.5 pg (28.0-32.0); Mean Corpuscular Volume 85.2 fL (80.0-100.0); Nucleated Red Blood Cells % 0.1 %
[2024-09-06 07:45] LABS: Chloride 104 mmol/L (98-107); Potassium 5.1 mmol/L (3.5-5.1); Sodium 140 mmol/L (136-145)
[2024-09-06 07:46] LABS: Anion Gap 7 (5-15); Calcium 9.4 mg/dL (8.7-10.4); Carbon Dioxide 29 mmol/L (20-31)
[2024-09-06 07:51] LABS: BUN/Creatinine Ratio 9.6 (10.0-20.0); Blood Urea Nitrogen 12 mg/dL (9-23); Glucose 79 mg/dL (74-106)
[2024-09-06 08:30] VITALS: BP 145/102; PULSE 61; RESP 14; TEMP 98.6; O2SAT 97
--- NOTE | 2024-09-06 08:42 | ECG ---
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
--- NOTE | 2024-09-06 11:58 | ECG ---
[facility] Test Date: 2024-09-05 Test Time: 20:44:00 Pat Name: DOM MCKEON Department: Respiratoy Room: 0219T B Gender: M Collar Stitcher: AM : 1960 Requested By: PIPPA REBOLLAR Order Number: [id number] Reading MD: Rob Holden Measurements Intervals [place] Rate: 60 P: 30 MT: 182 QRS: 0 QRSD: 87 T: 45 QT: 429 QTc: 429 Interpretive Statements Sinus rhythm Posterior infarct, old Nonspecific T abnormalities, lateral leads Electronically Signed On 09-07-2024 15:24:54 PDT by Rob Holden Please click the below link to view image of tracing.
[2024-09-06] MEDS ORDERED: PANT40TA2 PO (12:31)
[2024-09-06] MEDS ORDERED: CALC600C PO (12:31)
[2024-09-06 13:58] VITALS: BP 154/85; PULSE 58; RESP 14; TEMP 98; O2SAT 100
[2024-09-06 14:27] VITALS: BP 154/85; PULSE 58; RESP 14; TEMP 98; O2SAT 100
[2024-09-06] MEDS: KETOROLAC TROMETH 30 MG/ML 1ML VIAL IV ONE (14:56)
--- NOTE | 2024-09-06 17:09 | DVHDSRES ---
Discharge Summary Date of Admission Resident Creating Document: NOLA GALICIA RESIDENT Sep 04, 2024 at 19:39 Date of Discharge: Sep 06, 2024 Admitting Diagnosis Acute Chest Pain Wounds: No wounds Labs/Diagnostic Data: Laboratory Results Test 09/06/24 05:51 09/04/24 18:45 09/04/24 17:26 White Blood Count 6.3 10^3/uL (4.4-10.8) Red Blood Count 5.01 10^6/uL (4.5-5.90) Hemoglobin 14.3 g/dL (13.5-17.5) Hematocrit 42.7 % (41.0-53.0) Mean Corpuscular Volume 85.2 fL (80.0-100.0) Mean Corpuscular Hemoglobin 28.5 pg (28.0-32.0) Mean Corpuscular Hemoglobin Concent 33.4 g/dL (32.0-36.0) Red Cell Distribution Width 15.4 % (11.8-14.3) Platelet Count 231 10^3/uL (140-450) Mean Platelet Volume 8.1 fL (6.9-10.8) Neutrophils (%) (Auto) 48.2 % (37.0-80.0) Lymphocytes (%) (Auto) 40.6 % (10.0-50.0) Monocytes (%) (Auto) 7.2 % (0.0-12.0) Eosinophils (%) (Auto) 3.4 % (0.0-7.0) Basophils (%) (Auto) 0.6 % (0.0-2.0) Neutrophils # (Auto) 3.1 10 ^3/uL (1.6-8.6) Lymphocytes # (Auto) 2.6 10 ^3/uL (0.4-5.4) Monocytes # (Auto) 0.5 10 ^3/uL (0-1.3) Eosinophils # (Auto) 0.2 10 ^3/uL (0-0.8) Basophils # (Auto) 0 10 ^3/uL (0-0.2) Nucleated Red Blood Cells 0.1 % Sodium Level 140 mmol/L (136-145) Potassium Level 5.1 mmol/L (3.5-5.1) Chloride Level 104 mmol/L (98-107) Carbon Dioxide Level 29 mmol/L (20-31) Anion Gap 7 (5-15) Blood Urea Nitrogen 12 mg/dL (9-23) Creatinine 1.25 mg/dL (0.700-1.30) Glomerular Filtration Rate Calc 64 mL/min (>90) BUN/Creatinine Ratio 9.6 (10.0-20.0) Serum Glucose 79 mg/dL (74-106) Calcium Level 9.4 mg/dL (8.7-10.4) Troponin I High Sensitivity < 3 ng/L (</=54) Triglycerides Level 90 mg/dL (< 150) Cholesterol Level 105 mg/dL (< 200) LDL Cholesterol 47 mg/dL (< 100) HDL Cholesterol 37 mg/dL (40-59) Thyroid Stimulating Hormone (TSH) 1.76 uIU/mL (0.55-4.78) B-Type Natriuretic Peptide 65.56 pg/mL (0-100) Other Laboratory Tests 09/06/24 05:51 Brief Hx & Hospital Course: Patient is a 63 year old male with prior medical history of hypertension, 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 He refers sudden onset of chest pain, concentrated in the left pectoral region radiating towards the back and his left arm, 10/10 intensity, with no aggravating nor relieving factors, associated with nausea, weakness, shortness of breath, and bandlike headache. He denies diaphoresis, vomiting, and palpitations. On evaluation in the ED, 12 lead EKG showed sinus rhythm, with premature atrial complexes, without ST changes. Initial labs show WBC 7.2, hemoglobin 14.4, sodium 143, potassium 4.4, BUN 12, creatinine 1.22, troponins negative, BNP 65.56. Chest x-ray shows no acute cardiopulmonary disease. Due suspicion of ACS, patient was started on aspirin and Lipitor and was admitted for further workup and monitoring. On evaluation, patient referred persistence of chest pain and bandlike headache, additionally referred occasional GERD symptoms. Follow up EKGs showed NSR without ST alterations. Echocardiogram shows LVEF 55% with normal RV and LV function, and normal atria. Due to high suspicion of chest pain due to GERD, he was started on Maalox and PO protonix. On evaluation today, he stated he felt well, the chest pain had decreased, slept well, was tolerating oral diet, and ambulating without issue. Follow up labs were within normal range and his vitals remained stable. Patient is considered stable for discharge home with prescription for protonix and Maalox, lifestyle recommendations, and follow up appointment with his PCP in 1-2 weeks. Physical Exam: General: The patient alert and oriented in person place and time. Patient following commands HEENT: Normocephalic, atraumatic, moist mucous membrane Respiratory/pulmonary: Pain to palpation of right pectoral region, Clear lungs bilaterally, vesicular murmurs present in almost all lung van, no associated crackles or wheezes. Cardiovascular: Normal RRR, normal S1 and S2 Abdomen: Abdomen nondistended, pain to palpation in epigastrium, no palpable masses. Extremities: there is no peripheral edema present at the lower extremities. Peripheral pulses 3+ radial right, 3+ radials soft. 3+ dorsalis pedis right. 3+ dorsalis pedis left Skin: No rashes or pruritus, there is no sacral edema present at this time. Neurological: Intact cranial nerves with no focal neurologic deficits. Case discussed with Dr. Holcomb. Goals of care discussed with the patient and his , Roseanne, for over 20 minutes. They both state they understand and agree. Operations or Procedures CHEST TWO VIEWS REASON FOR EXAM: Chest pain COMPARISON: 06/05/2022 TECHNIQUE: PA and lateral views of the chest are obtained. FINDINGS: The cardiomediastinal silhouette is within normal limits for size. There is no focal airspace disease. There is no pleural effusion. No acute osseous abnormality is identified. There is multilevel degenerative change in the spine. IMPRESSION: No radiographic evidence of acute cardiopulmonary process. PROCEDURE(s): [facility] - ECHO 2D MODE CARDIAC DOP REASON: chest pain ORDER NUMBER(s): [id number], ACCESSION NUMBER(s): [id number] APPROVED REPORT EXAM: Two-dimensional and M-mode echocardiogram with Doppler and color Doppler. Blood Pressure: 124/80 mmHg INDICATION Chest Pain RISK FACTORS Height: 5'11", Weight: 220 DIMENSIONS LVDd 5.2 (3.8-5.7cm) LA (2D) 4.2 (1.9-4.0cm) Aortic Root 3.5 (2.0- 3.7cm) LVDs 3.7 (2.5-4.0cm) LA (MM) (1.9-4.0cm) Aortic Cusp Exc 2.1 (1.5- 2.0cm) EF (%) 54.0 (55-70%) Rt. Atrium 3.0 (1.9-4.0cm) Asc. Aorta 3.6 cm IVSd 1.0 (0.7-1.1cm) RV (D) 3.7 (1.8-2.4cm) PWd 1.0 (0.7-1.1cm) Mitral Valve Mitral Mitral Stenosis E wave 0.64m/s MV Mean GR. mmHg A wave 0.76m/s MV Peak GR. mmHg E/A ratio 0.8 2D MVA cm2 DECEL Time 277ms PRESS 1/2 Time ms Aortic Valve Aortic Valve Aortic Stenosis V1 0.85m/s AO Mean GR. 3mmHg V2 1.09m/s AO Peak GR. 5mmHg LVOT Diameter 2.5 (1.8-2.4cm) Doppler DADA 3.83cm2 Pulmonic Valve V2 0.88m/s Tricuspid Valve TR Velocity 2.18m/s RVSP 22mmHg Conclusion lvef 55% normal rv and lv function normal atria no severe valve abnormaliites noted Condition at Discharge: Stable Final Diagnosis/Problems List Acute Chest Pain, ruled out ACS, likely due to GERD Ruled out musculoskeletal origen Hypertension Peripheral neuropathy History of CVA Discharge Disposition: Home Discharge Instruct/Medications Diet: Consistent carbohydrate Activity: No Restrictions, As Tolerated Follow Up/Referral: Follow up with PCP in 1-2 weeks Medications: Maalox Protonix Scheduled Aspirin (Aspirin Low Dose), 81 MG PO DAILY Atorvastatin Calcium (Lipitor), 1 TAB PO QPM, (Reported) Atorvastatin Calcium (Atorvastatin Calcium), 20 MG PO HS Baclofen (Baclofen), 10 MG PO TID, (Reported) Calcium Carbonate (Antacid) (Maalox), 600 MG PO PRN Cholecalciferol (D3), 2,000 UNIT PO DAILY, (Reported) Duloxetine Hcl (Cymbalta), 1 CAP PO DAILY, (Reported) Gabapentin (Gabapentin), 1 CAP PO TID, (Reported) Melatonin ( Melatonin), 3 MG PO HSPRN, (Reported) Metoprolol Tartrate (Lopressor), 25 MG PO BID Pantoprazole Sodium Sesquihydr (Protonix), 40 MG PO DAILY Sennosides-Docusate Sodium (Senokot S), 1 TAB PO BID, (Reported) Trazodone HCl (Trazodone Hydrocloride), 100 MG PO HS, (Reported) Discharge Statement: "Patient was advised to return to the ER or call 911 if any headaches, dizziness, shortness of breath, chest pain, abdominal pain, bleeding, fevers, or worsening of medical condition. Patient was counseled about treatment plan, medications, possible side effects, patientverbalized understanding. All questions were answered to the best of my ability. This discharge took greater then 30 minutes in planning, reviewing documentation, counseling the patient, and discussing with other team members." ASSESSMENT ASSESSMENT Assessment Acute Chest Pain, likely due to GERD Date of Service: Sep 06, 2024 Billing Provider: CRISTINO HOLCOMB MD Common Visit Codes: [id number]/OBS DISCH DAY >30min NOLA GALICIA RESIDENT Sep 06, 2024 17:09 CRISTINO HOLCOMB MD Sep 08, 2024 14:31
== END 2024-09-06 15:29 | disposition home or self-care (01) | DRG 392 ==
LOC: ER 17:17 → OVERFLOW 19:39 → TELE-CENTR 19:44
PROVIDERS: ADMIT Student in an Organized Health Care Education/Training Program; ATTEND Student in an Organized Health Care Education/Training Program
DX: K21.9 Gastro-esophageal reflux disease without esophagitis (principal); I10 Essential (primary) hypertension; G62.9 Polyneuropathy, unspecified; J45.909 Unspecified asthma, uncomplicated; Z86.73 Personal history of transient ischemic attack (TIA), and cerebral infarction without residual deficits; Z87.442 Personal history of urinary calculi; Z79.82 Long term (current) use of aspirin; Z79.84 Long term (current) use of oral hypoglycemic drugs; Z79.899 Other long term (current) drug therapy
CPT/HCPCS: 36415; 71046; 80048; 80061; 83880; 84132; 84443; 84484; 85025; 93005; 93306; 99291; G0378; J1885; J2405

== ENCOUNTER 2024-12-03 20:11 | Inpatient (IN) | payer OTHER ==
[~2024-12-03] VITALS: Ht 185.4 cm; Wt 102.2 kg
[~2024-12-03 20:11] MED LIST changes: +CALC600C PO; +PANT40TA2 PO
--- NOTE | 2024-12-03 20:43 | ED.PDOC ---
History of Present Illness HPI Comments 64-year-old male who came to ER via EMS for generalized weakness. Patient has history of hypertension and CVA 2x. Noted few hours ago, patient appeared to be very weak and fatigued at home. Complaining also of headaches. Patient recently had IV antibiotics for a wound on his back Upon arrival of the medics, blood sugar of 115, was hypotensive at 74/47 mm Hg. Patient was given 700 cc IV fluids, improved to 106/66 mm Hg Chief Complaint: General Weakness Time Seen by MD: 20:42 Primary Care Provider: SC Reviewed Notes: Nurses Notes Allergies: Coded Allergies: NO KNOWN ALLERGIES (Unverified , 04/05/17) Home Meds Active Scripts Pantoprazole Sodium Sesquihydr (Protonix) 40 Mg Tab, 40 MG PO DAILY for 30 Days, #30 TAB 2 Refills Prov:DAVID CROWELL RESIDENT 09/06/24 Calcium Carbonate (Antacid) (Maalox) 600 Mg Chw, 600 MG PO PRN for 30 Days, #90 TAB.CHEW Prov:DAVID CROWELL RESIDENT 09/06/24 Atorvastatin Calcium (ATORVASTATIN CALCIUM) 20 Mg Tab, 20 MG PO HS for 30 Days, #30 TAB 1 Refill Prov:MANFRED BRONSON DO 06/08/22 Metoprolol Tartrate (Lopressor) 25 Mg Tb, 25 MG PO BID for 30 Days, #60 TAB 1 Refill Prov:MANFRED BRONSON DO 06/08/22 Aspirin (Aspirin Low Dose) 81 Mg Tab, 81 MG PO DAILY for 30 Days, #30 TAB 1 Ref ill Prov:MANFRED BRONSON DO 06/08/22 Reported Medications Baclofen (Baclofen) 10 Mg Tab, 10 MG PO TID, TAB 06/06/22 Sennosides-Docusate Sodium (Senokot S) 1 Tab Tab, 1 TAB PO BID, #30 TAB 06/06/22 Melatonin (KP MELATONIN) 3 Mg Tab, 3 MG PO HSPRN, TAB 06/06/22 Trazodone HCl (Trazodone Hydrocloride) 100 Mg Tab, 100 MG PO HS, TAB 06/06/22 Duloxetine Hcl (Cymbalta) 20 Mg Cap, 1 CAP PO DAILY, #30 CAP 2 Refills 06/06/22 Cholecalciferol (D3) 2,000 Unit Cap, 2000 UNIT PO DAILY, CAP 06/06/22 Atorvastatin Calcium (Lipitor) 40 Mg Tab, 1 TAB PO QPM, #90 TAB 1 Refill 06/06/22 Gabapentin (Gabapentin) 300 Mg Cap, 1 CAP PO TID, #90 CAP 5 Refills 06/06/22 Information Source: Patient, Spouse Mode of Arrival: EMS Severity: Moderate Timing: Hours Duration: Since onset Past Medical History PAST MEDICAL HISTORY: Asthma, CVA, HTN, Kidney Stones, SC Surgical History: Denies all surgeries Family History Family History: Family hx of Cancer Social History Smoker: Non-Smoker Alcohol: Denies ETOH Use Drugs: Denies Drug Use Lives In: Home Constitutional: denies: chills, diaphoresis, fatigue, fever, malaise, sweats, weakness, others EENTM: denies: blurred vision, double vision, ear bleeding, ear discharge, ear drainage, ear pain, ear ringing, eye pain, eye redness, hearing loss, mouth pain, mouth swelling, nasal discharge, nose bleeding, nose congestion, nose pain, photophobia, tearing, throat pain, throat swelling, voice changes, others Respiratory: denies: cough, hemoptysis, orthopnea, SOB at rest, shortness of breath, SOB with excertion, stridor, wheezing, others Cardiovascular: denies: chest pain, dizzy spells, diaphoresis, Dyspnea on exertion, edema, irregular heart beat, left arm pain, lightheadedness, palpitations, PND, syncope, others Gastrointestinal: denies: abdomen distended, abdominal pain, blood streaked bowels, constipated, diarrhea, dysphagia, difficulty swallowing, hematemesis, melena, nausea, poor appetite, poor fluid intake, rectal bleeding, rectal pain, vomiting, others Genitourinary: denies: burning, dysuria, flank pain, frequency, hematuria, incontinence, penile discharge, penile sore, pain, testicle pain, testicle swelling, urgency, others Neurological: reports: headache, weakness; denies: dizziness, fainting, left sided numbness, left sided weakness, numbness, paresthesia, pre-existing deficit, right sided numbness, right sided weakness, seizure, speech problems, tingling, tremors, others Musculoskeletal: denies: back pain, gout, joint pain, joint swelling, muscle pain, muscle stiffness, neck pain, others Integumetry: denies: bruises, change in color, change in hair/nails, dryness, laceration, lesions, lumps, rash, wounds, others Allergic/Immunocompromised: denies: Difficulty Healing, Frequent Infections, Hives, Itching, others Hematologic/Lymphatic: denies: anemia, blood clots, easy bleeding, easy bruising, swollen glands, others Endocrine: denies: excessive hunger, excessive sweating, excessive thirst, excessive urination, flushing, intolerance to cold, intolerance to heat, unexplained weight gain, unexplained weight loss, others Psychiatric: denies: anxiety, bipolar disorder, depression, hopeless, panic disorder, schizophrenia, sleepless, suicidal, others Physical Exam General Appearance: No Apparent Distress, Normal HEENT: Normal ENT Inspection, Pharynx Normal, TMs Normal Neck: Full Range of Motion, Non-Tender, Normal, Normal Inspection Respiratory: Chest Non-Tender, Lungs Clear, No Accessory Muscle Use, No Respiratory Distress, Normal Breath Sounds Cardiovascular: No Edema, No JVD, No Murmur, No Gallop, Normal Peripheral Pulses, Regular Rate/Rhythm Breast Exam: Deferred Gastrointestinal: No Organomegaly, Non Tender, No Pulsatile Mass, Normal Bowel Sounds, Soft Genitalia: Deferred Pelvic: Deferred Rectal: Deferred Extremities: No calf tenderness, Normal capillary refill, Normal inspection, Normal range of motion, Non-tender, No pedal edema Musculoskeletal : Apperance: Normal Neurologic: Alert, manager cable II-XII nml as Tested, No Motor Deficits, Normal Affect, Normal Mood, No Sensory Deficits Cerebellar Function: Normal Reflexes: Normal Skin: Dry, Normal Color, Warm Lymphatic: No Adenopathy Was a procedure done? Was a procedure done?: No Differential Dx Considerations may include: Anemia, electrolyte imbalance, hypotension, CVA X-Ray, Labs, Meds, VS Vital Signs Date Time Temp Pulse Resp B/P (MAP) Pulse Ox O2 Delivery O2 Flow Rate FiO2 12/03/24 20:15 98.3 60 16 106/66 98 98.3 Lab Test 12/03/24 20:57 Range/Units White Blood Count 5.9 4.4-10.8 10^3/uL Red Blood Count 4.54 4.5-5.90 10^6/uL Hemoglobin 13.0 L 13.5-17.5 g/dL Hematocrit 39.0 L 41.0-53.0 % Mean Corpuscular Volume 85.9 80.0-100.0 fL Mean Corpuscular Hemoglobin 28.6 28.0-32.0 pg Mean Corpuscular Hemoglobin Concent 33.3 32.0-36.0 g/dL Red Cell Distribution Width 14.4 H 11.8-14.3 % Platelet Count 210 140-450 10^3/uL Mean Platelet Volume 7.8 6.9-10.8 fL Neutrophils (%) (Auto) 64.9 37.0-80.0 % Lymphocytes (%) (Auto) 23.2 10.0-50.0 % Monocytes (%) (Auto) 8.8 0.0-12.0 % Eosinophils (%) (Auto) 2.5 0.0-7.0 % Basophils (%) (Auto) 0.6 0.0-2.0 % Neutrophils # (Auto) 3.8 1.6-8.6 10 ^3/uL Lymphocytes # (Auto) 1.4 0.4-5.4 10 ^3/uL Monocytes # (Auto) 0.5 0-1.3 10 ^3/uL Eosinophils # (Auto) 0.1 0-0.8 10 ^3/uL Basophils # (Auto) 0 0-0.2 10 ^3/uL Nucleated Red Blood Cells 0.1 % Sodium Level 141 136-145 mmol/L Potassium Level 4.1 3.5-5.1 mmol/L Chloride Level 109 H 98-107 mmol/L Carbon Dioxide Level 26 20-31 mmol/L Anion Gap 6 5-15 Blood Urea Nitrogen 7 L 9-23 mg/dL Creatinine 1.11 0.700-1.30 mg/dL Glomerular Filtration Rate Calc 73 >90 mL/min BUN/Creatinine Ratio 6.3 L 10.0-20.0 Serum Glucose 88 74-106 mg/dL Lactic Acid Level 0.9 0.4-2.0 mmol/L Calcium Level 8.5 L 8.7-10.4 mg/dL Magnesium Level 2.2 1.6-2.6 mg/dL Total Bilirubin 0.7 0.2-1.0 mg/dL Aspartate Amino Transferase (AST) 12 L 13-40 U/L Alanine Aminotransferase (ALT) 10 7-40 U/L Alkaline Phosphatase 66 46-116 U/L Total Protein 6.1 5.7-8.2 g/dL Albumin 3.8 3.2-4.8 g/dL Lipase 24 12-53 U/L Current Medications Medications (Trade) Dose Ordered Sig/Isai Route Start Time Stop Time Status Last Admin Sodium Chloride 1,000 ml @ 1,000 mls/hr Q1H ONCE IVB 12/03/24 20:45 12/03/24 21:44 DC 12/03/24 20:45 Time of 1ST Reevaluation: 20:38 Reevaluation 1ST: Unchanged Patient Education/Counseling: Diagnosis, Treatment Family Education/Counseling: No Family Present SEPSIS Sepsis Screen Date sepsis recognized/suspect: Dec 03, 2024 Time Sepsis recognized/suspect: 2014 Recent Procedure: No On Antibiotic Therapy: No Respiratory Rate >20: No Heart Rate >90: No Temp<36 C (96.8 F) or >38.3 C: No SBP <90 or MAP <65 mmHG: No New Acute Mental Status Change: No Is the patient on CPAP, BIPAP,: No Physician Orders Urinalysis (12/03/24 20:34) Blood Culture (12/03/24 20:34) Chest Portable (12/03/24 20:34) Head Without Contrast (12/03/24 20:34) Vital Signs Date Time Temp Pulse Resp B/P (MAP) Pulse Ox O2 Delivery O2 Flow Rate FiO2 12/03/24 20:15 98.3 60 16 106/66 98 98.3 Laboratory Tests Test 12/03/24 20:57 Lactic Acid Level 0.9 mmol/L (0.4-2.0) White Blood Count 5.9 10^3/uL (4.4-10.8) Medications Medications Dose Ordered Sig/Isai Route Start Time Stop Time Status Last Admin Dose Admin Sodium Chloride 1,000 ml @ 1,000 mls/hr Q1H ONCE IVB 12/03/24 20:45 12/03/24 21:44 DC 12/03/24 20:45 Departure 1 Departure Time of Disposition: 22:38 Impression: Primary Impression: Metabolic encephalopathy Additional Impressions: Syncope Cellulitis of back Disposition: ADMITTED INPATIENT Admit to: Tele Condition: Guarded Comments 64-year-old male with a history of a pressure ulcer on his back that got infected now had a syncopal episode at home and decreased mental status. Lab review and CT of the head are unrevealing. Patient is a bit somnolent. Patient was given IV fluids and IV Ancef and vancomycin antibiotics. Patient will need to be admitted for metabolic encephalopathy and back cellulitis and syncope Critical Care Note Critical Care Time?: No Stability Stability form required: No Heart Score Heart Score: Heart Score Response (Comments) Value History N/A 0 EKG N/A 0 Age N/A 0 Risk Factors N/A 0 Troponin N/A 0 Total 0 I personally scribed for ALVAREZ GRAY MD ([email or web address]) on 12/03/24 at 20:42. Electronically submitted by Edward Chakraborty ([email or web address]). I personally scribed for ALVAREZ GRAY MD ([email or web address]) on 12/03/24 at 21:23. Electronically submitted by Edward Chakraborty ([email or web address]). ALVAREZ GRAY MD Dec 03, 2024 20:42
[2024-12-03] MEDS: SODIUM CHLORIDE 0.9% 1,000 ML IVB ONE (20:45)
--- NOTE | 2024-12-03 21:11 | DVH ---
CHEST RADIOGRAPH Indication: SOB Technique: Single frontal view of the chest was obtained Comparison: XY CHEST PORTABLE on DOS: 06/05/22 FINDINGS: Lines and Tubes: None Lungs: No focal consolidation. Pleura: No effusion. No pneumothorax. Cardiomediastinal contours: Unremarkable Bones: No acute osseous abnormality. IMPRESSION: No acute cardiopulmonary disease.
--- NOTE | 2024-12-03 21:20 | DVH ---
COMPUTERIZED TOMOGRAPHY OF THE HEAD WITHOUT CONTRAST REASON FOR STUDY: Syncope. Head injury. COMPARISON: CT HEAD WITHOUT CONTRAST on DOS: 06/05/22 TECHNIQUE: Helical tomographic scans were obtained through the brain. 2-D coronal and sagittal refor matted images are provided. Radiation optimization: All CT scans at this facility use at least one of these dose optimization techniques: Automated exposure control mA and/or kV adjustment per patient s ize (includes targeted exams where dose is matched to clinical indication) or iterative reconstructio n. RADIATION DOSE: CTDI: 69 mGy DLP: 1368 mGy-cm FINDINGS: No suspicious intracranial hyperdensity to suggest acute blood. There is no mass effect n or midline shift. There is no hydrocephalus. The suprasellar cistern is intact. The calvarium is inta ct. The visualized mastoid air cells and paranasal sinuses are clear. IMPRESSION: No acute intracranial abnormality.
[2024-12-03 21:23] LABS: Hematocrit 39.0 % (41.0-53.0); Hemoglobin 13.0 g/dL (13.5-17.5); Mean Corpuscular Hemoglobin 28.6 pg (28.0-32.0); Mean Corpuscular Volume 85.9 fL (80.0-100.0); Nucleated Red Blood Cells % 0.1 %
[2024-12-03 21:39] LABS: Alanine Aminotransferase 10 U/L (7-40); Albumin 3.8 g/dL (3.2-4.8); Alkaline Phosphatase 66 U/L (46-116); Anion Gap 6 (5-15); BUN/Creatinine Ratio 6.3 (10.0-20.0); Carbon Dioxide 26 mmol/L (20-31); Glucose 88 mg/dL (74-106); Lipase 24 U/L (12-53); Magnesium 2.2 mg/dL (1.6-2.6); Potassium 4.1 mmol/L (3.5-5.1); Sodium 141 mmol/L (136-145); Total Protein 6.1 g/dL (5.7-8.2)
[2024-12-03 21:40] LABS: Bilirubin, Total 0.7 mg/dL (0.2-1.0)
[2024-12-03 21:41] LABS: Blood Urea Nitrogen 7 mg/dL (9-23); Calcium 8.5 mg/dL (8.7-10.4); Chloride 109 mmol/L (98-107)
[2024-12-03] MEDS: ceFAZolin 1GM/50ML 50 ML IV ONE (22:45)
[2024-12-03] MEDS ORDERED: ACETAMINOPHEN 325 MG TAB PO PRN (23:15)
[2024-12-03] MEDS ORDERED: DOCUSATE SOD 100 MG CAP PO PRN (23:15)
--- NOTE | 2024-12-03 23:37 | DVHHP2 ---
History of Present Illness Reason for Visit: Generalized weakness History of Present Illness The patient is a 64-year-old male with past medical history of asthma, CVA, ID, kidney stones, and hypertension who presented to [facility] ED for evaluation of generalized weakness. Patient reports he has been experiencing weakness, fatigue, associated with headache, dizziness for the past 1 day. Patient recently had IV antibiotics for a wound on his back. Patient was seen and evaluated in the ED, laboratory data shows WBC 5.9, hemoglobin 13.0, hematocrit 39.0, platelets 210, sodium 141, potassium 4.1, BUN seven, creatinine 1.11, GFR 73, glucose 83, calcium 8.5, lipase 24, blood pressure 106/66, heart rate 60, temperature 98.3 F, O2 saturation 98% on room air. Head CT showed no acute intracranial abnormality. Please see medication orders section in the computer. On my assessment, patient denies chest pain, no headache, dizziness, diaphoresis, shortness of breaths, no diarrhea, nausea, vomiting, fever, chills. Patient was admitted for further evaluation and medical management. Past Medical History Asthma, CVA, HTN, Kidney Stones, ID Past Surgical History Denies all surgeries Family History Reviewed, noncontributory to the management of this case. Past Social History The patient lives at home, denies smoking, alcohol or illicit drugs abuse. Review of Systems Constitutional: Yes: Weakness, Other (Fatigue); No: Fever, Chills, Sweats, Malaise Eyes: No: Pain, Vision change, Conjunctivae inflammation, Eyelid inflammation, Other, Redness ENT: No: Ear pain, Ear discharge, Nose pain, Nose discharge, Nose congestion, Mouth pain, Mouth swelling, Throat pain, Throat swelling, Other Respiratory: No: Cough, Dry, Shortness of breath, SOB with excertion, Wheezing, Hemoptysis, Pleuritic Pain, Sputum, Wheezing, Other Cardiovascular: No: Chest Pain, Palpitations, Orthopnea, Paroxysmal Noc. Dyspnea, Edema, Lt Headedness, Other Gastrointestinal: No: Nausea, Vomiting, Abdominal Pain, Diarrhea, Constipation, Melena, Hematochezia, Other Genitourinary: No Dysuria, No Frequency, No Incontinence, No Hematuria, No Retention, No Other Musculoskeletal: No: other, neck pain, shoulder pain, arm pain, back pain, hand pain, leg pain, foot pain Skin: Other (Open wound on the back); No: Rash, Jaundice, Bruising Neurological: No: Weakness, Numbness, Incoordination, Change in speech, Confusion, Seizures, Other Allergies: Coded Allergies: NO KNOWN ALLERGIES (Unverified , 04/05/17) Medications Current Medications Medications Dose Ordered Sig/Isai Route Start Time Stop Time Status Last Admin Dose Admin Aspirin 81 mg DAILY PO 12/04/24 10:00 Atorvastatin Calcium 20 mg HS PO 12/04/24 22:00 Duloxetine HCl 30 mg DAILY PO 12/04/24 10:00 Gabapentin 300 mg TID PO 12/04/24 06:00 Famotidine 20 mg DAILY IV 12/04/24 10:00 Sodium Chloride 10 ml Q8HR IV 12/04/24 06:00 Acetaminophen/ Hydrocodone Bitart 1 tab Q4HP PRN PO 12/03/24 23:15 Ondansetron HCl 4 mg Q4HP PRN IV 12/03/24 23:15 Docusate Sodium 100 mg BIDPRN PRN PO 12/03/24 23:15 Acetaminophen 650 mg Q6HP PRN PO 12/03/24 23:15 Exam Vital Signs Vital Signs Date Time Temp Pulse Resp B/P (MAP) Pulse Ox O2 Delivery O2 Flow Rate FiO2 12/03/24 20:15 98.3 60 16 106/66 98 98.3 General Appearance: Alert, Oriented X3, Cooperative, No acute distress HEENT: Atraumatic, PERRLA, EOMI, Mucous membr. moist/pink Respiratory: Normal air movement Cardiovascular: Regular rate, Normal S1, Normal S2, No murmurs Abdominal: Normal bowel sounds, Soft, No tenderness, No hepatospenomegaly, No masses Extremities: No clubbing, No cyanosis, No edema, Normal pulses, No tenderness/swelling Skin: No rashes, No significant lesion (Wound on the back) Neuro: Normal speech, Normal tone, Sensation intact, Cranial nerves 3-12 NL, Reflexes 2+, Other (Generalized weakness) Psych/Mental Status: Mental status NL, Mood NL Labs/Xrays Labs Test 12/03/24 20:57 Range/Units White Blood Count 5.9 4.4-10.8 10^3/uL Red Blood Count 4.54 4.5-5.90 10^6/uL Hemoglobin 13.0 L 13.5-17.5 g/dL Hematocrit 39.0 L 41.0-53.0 % Mean Corpuscular Volume 85.9 80.0-100.0 fL Mean Corpuscular Hemoglobin 28.6 28.0-32.0 pg Mean Corpuscular Hemoglobin Concent 33.3 32.0-36.0 g/dL Red Cell Distribution Width 14.4 H 11.8-14.3 % Platelet Count 210 140-450 10^3/uL Mean Platelet Volume 7.8 6.9-10.8 fL Neutrophils (%) (Auto) 64.9 37.0-80.0 % Lymphocytes (%) (Auto) 23.2 10.0-50.0 % Monocytes (%) (Auto) 8.8 0.0-12.0 % Eosinophils (%) (Auto) 2.5 0.0-7.0 % Basophils (%) (Auto) 0.6 0.0-2.0 % Neutrophils # (Auto) 3.8 1.6-8.6 10 ^3/uL Lymphocytes # (Auto) 1.4 0.4-5.4 10 ^3/uL Monocytes # (Auto) 0.5 0-1.3 10 ^3/uL Eosinophils # (Auto) 0.1 0-0.8 10 ^3/uL Basophils # (Auto) 0 0-0.2 10 ^3/uL Nucleated Red Blood Cells 0.1 % Sodium Level 141 136-145 mmol/L Potassium Level 4.1 3.5-5.1 mmol/L Chloride Level 109 H 98-107 mmol/L Carbon Dioxide Level 26 20-31 mmol/L Anion Gap 6 5-15 Blood Urea Nitrogen 7 L 9-23 mg/dL Creatinine 1.11 0.700-1.30 mg/dL Glomerular Filtration Rate Calc 73 >90 mL/min BUN/Creatinine Ratio 6.3 L 10.0-20.0 Serum Glucose 88 74-106 mg/dL Lactic Acid Level 0.9 0.4-2.0 mmol/L Calcium Level 8.5 L 8.7-10.4 mg/dL Magnesium Level 2.2 1.6-2.6 mg/dL Total Bilirubin 0.7 0.2-1.0 mg/dL Aspartate Amino Transferase (AST) 12 L 13-40 U/L Alanine Aminotransferase (ALT) 10 7-40 U/L Alkaline Phosphatase 66 46-116 U/L Total Protein 6.1 5.7-8.2 g/dL Albumin 3.8 3.2-4.8 g/dL Lipase 24 12-53 U/L PATIENT: DOM MCKEON ACCT: [id number] UNIT: [id number] : 1960 LOC: ER ROOM / BED: / AGE / SEX: 64 / M ADM STATUS: REG ER SERVICE 33 ORDERING PHYSICIAN: ALVAREZ GRAY MD PROCEDURE(s): HWOCT - HEAD WITHOUT CONTRAST REASON: syncope head injury ORDER NUMBER(s): [id number], ACCESSION NUMBER(s): [id number] COMPUTERIZED TOMOGRAPHY OF THE HEAD WITHOUT CONTRAST REASON FOR STUDY: Syncope. Head injury. COMPARISON: CT HEAD WITHOUT CONTRAST on DOS: 06/05/22 TECHNIQUE: Helical tomographic scans were obtained through the brain. 2-D coronal and sagittal reformatted images are provided. Radiation optimization: All CT scans at this facility use at least one of these dose optimization techniques: Automated exposure control mA and/or kV adjustment per patient size (includes targeted exams where dose is matched to clinical indication) or iterative reconstruction. RADIATION DOSE: CTDI: 69 mGy DLP: 1368 mGy-cm FINDINGS: No suspicious intracranial hyperdensity to suggest acute blood. There is no mass effect nor midline shift. There is no hydrocephalus. The suprasellar cistern is intact. The calvarium is intact. The visualized mastoid air cells and paranasal sinuses are clear. IMPRESSION: No acute intracranial abnormality. ORDERING PHYSICIAN: ALVAREZ GRAY MD PROCEDURE(s): CXRP - CHEST PORTABLE REASON: SOB ORDER NUMBER(s): [id number], ACCESSION NUMBER(s): [id number] CHEST RADIOGRAPH Indication: SOB Technique: Single frontal view of the chest was obtained Comparison: XY CHEST PORTABLE on DOS: 06/05/22 FINDINGS: Lines and Tubes: None Lungs: No focal consolidation. Pleura: No effusion. No pneumothorax. Cardiomediastinal contours: Unremarkable Bones: No acute osseous abnormality. IMPRESSION: No acute cardiopulmonary disease. SEPSIS Sepsis Screen Date sepsis recognized/suspect: Dec 03, 2024 Time Sepsis recognized/suspect: 2014 Recent Procedure: No On Antibiotic Therapy: No Respiratory Rate >20: No Heart Rate >90: No Temp<36 C (96.8 F) or >38.3 C: No SBP <90 or MAP <65 mmHG: No New Acute Mental Status Change: No Is the patient on CPAP, BIPAP,: No Physician Orders Urinalysis (12/03/24 20:34) Blood Culture (12/03/24 20:34) Chest Portable (12/03/24 20:34) Head Without Contrast (12/03/24 20:34) Vancomycin 1gm/250ml Kit (12/03/24 22:45) Aspirin Tablet (12/04/24 10:00) Atorvastatin (Lipitor) (12/04/24 22:00) Duloxetine Hcl Capsule (Cymbalta Capsule (12/04/24 10:00) Gabapentin Capsule (Neurontin Capsule) (12/04/24 06:00) Famotidine Injection (Pepcid Injection) (12/04/24 10:00) Allergies (12/03/24 23:05) Code Status (12/03/24 23:05) Sodium Chloride Lock (Saline Lock Ns) (12/04/24 06:00) Oxygen Per Hour (12/03/24 23:05) Hydrocodone-Acet 5/325mg Tab ([place] 5/32 (12/03/24 23:15) Ondansetron Hcl (Zofran) (12/03/24 23:15) Docusate Sodium Capsule (Colace Capsule) (12/03/24 23:15) Fall Risk Precautions In Place QSHIFT (12/03/24 23:05) Complete Blood Count (12/04/24 04:00) Comprehensive Metabolic Panel (12/04/24 04:00) Cardiac Diet-2gna,Lofat,Lochol (12/04/24 Breakfast) Condition: Serious (12/03/24 23:05) Acetaminophen Tablet (Tylenol Tablet) (12/03/24 23:15) Maintain Bed Rest (12/03/24 23:05) Sequential Compression Device (12/03/24 ) Admit (12/03/24 23:35) Nitroglycerin Sublingual (Ntrostat Subli (12/03/24 23:45) Morphine Sulfate Injection (12/03/24 23:45) Stat Ekg For Chest Pain (12/03/24 23:35) Vital Signs Date Time Temp Pulse Resp B/P (MAP) Pulse Ox O2 Delivery O2 Flow Rate FiO2 12/03/24 20:15 98.3 60 16 106/66 98 98.3 Laboratory Tests Test 12/03/24 20:57 Lactic Acid Level 0.9 mmol/L (0.4-2.0) White Blood Count 5.9 10^3/uL (4.4-10.8) Medications Medications Dose Ordered Sig/Isai Route Start Time Stop Time Status Last Admin Dose Admin Sodium Chloride 1,000 ml @ 1,000 mls/hr Q1H ONCE IVB 12/03/24 20:45 12/03/24 21:44 DC 12/03/24 20:45 1,000 MLS/HR Assessment/Plan Assessment/Plan Metabolic encephalopathy Syncope Cellulitis of back Generalized weakness Plan 1. Admit to telemetry unit 2. Breathing treatment 3. Pain control management 4. IV antibiotic management 5. Management of fluids and electrolytes 6. Consultation for hospitalist 7. Diagnostic test head CT 8. DVT prophylaxis-on SCDs 9. Repeat labs CBC, CMP in a.m. 10. Home medication reviewed and reconciled 11. Continue with current medical management 12. Treatment plan discussed with patient/ and RN. Patient/ verbalized understanding. Plan discussed with: Patient, Spouse ( at bedside), Other (RN) My Orders Orders - OLGA GREWAL DNP Procedure Category Date Status Time Aspirin Tablet PHA 12/04/24 In Process 10:00 Atorvastatin (Lipitor) PHA 12/04/24 In Process 22:00 Duloxetine Hcl PHA 12/04/24 In Process Capsule (Cymbalta 10:00 Gabapentin Capsule PHA 12/04/24 In Process (Neurontin Capsule) 06:00 Famotidine Injection PHA 12/04/24 In Process (Pepcid Injection) 10:00 Allergies JENNIFER 12/03/24 In Process 23:05 Code Status CODE 12/03/24 Transmitted 23:05 Sodium Chloride Lock PHA 12/04/24 In Process (Saline Lock Ns) 06:00 Oxygen Per Hour RT 12/03/24 Transmitted 23:05 Hydrocodone-Acet PHA 12/03/24 In Process 5/325mg Tab ([place] 23:15 Ondansetron Hcl PHA 12/03/24 In Process (Zofran) 23:15 Docusate Sodium PHA 12/03/24 In Process Capsule (Colace 23:15 Fall Risk Precautions JENNIFER 12/03/[address] 23:05 Complete Blood Count LAB 12/04/24 Verified 04:00 Comprehensive LAB 12/04/24 Verified Metabolic Panel 04:00 Cardiac DIET 12/04/24 Transmitted Diet-2gna,Lofat,Lochol Breakfast Condition: Serious JENNIFER 12/03/24 In Process 23:05 Acetaminophen Tablet PHA 12/03/24 In Process (Tylenol Tablet) 23:15 Maintain Bed Rest JENNIFER 12/03/24 In Process 23:05 Sequential JENNIFER 12/03/24 In Process Compression Device Admit ADMIT 12/03/24 Verified 23:35 Nitroglycerin PHA 12/03/24 Verified Sublingual (Ntrostat 23:45 Morphine Sulfate PHA 12/03/24 Verified Injection 23:45 Stat Ekg For Chest JENNIFER 12/03/24 Verified Pain 23:35 Problem List: (1) Metabolic encephalopathy (2) Syncope (3) Cellulitis of back (4) Generalized weakness Date of Service: Dec 03, 2024 Billing Provider: OLGA GREWAL DNP Common Visit Codes: [id number] INP/OBS CARE (HIGH) OLGA GREWAL DNP Dec 03, 2024 23:37
[2024-12-03] MEDS ORDERED: MORPHINE SULFATE INJ 2 MG/ml SYRG IV PRN (23:45)
[2024-12-04] VITALS (11 sets, daily range): BP systolic 145–177; BP diastolic 79–105; PULSE 48–65; RESP 16–18; TEMP 97.5–98.3; O2SAT 96–100
[2024-12-04] MEDS ORDERED: VANCOMYCIN PER PHARMACY 0 MG IV SCH (01:30)
[2024-12-04] MEDS: VANCOMYCIN 1GM/250ML KIT 250 ML IV ONE (01:35)
[2024-12-04 04:51] LABS: Hematocrit 39.8 % (41.0-53.0); Hemoglobin 13.2 g/dL (13.5-17.5); Mean Corpuscular Hemoglobin 28.1 pg (28.0-32.0); Mean Corpuscular Volume 84.7 fL (80.0-100.0); Nucleated Red Blood Cells % 0.1 %
[2024-12-04 04:56] LABS: Albumin 3.7 g/dL (3.2-4.8); Alkaline Phosphatase 64 U/L (46-116); Anion Gap 10 (5-15); BUN/Creatinine Ratio 7.7 (10.0-20.0); Carbon Dioxide 25 mmol/L (20-31); Glucose 87 mg/dL (74-106); Potassium 3.7 mmol/L (3.5-5.1); Sodium 143 mmol/L (136-145); Total Protein 6.0 g/dL (5.7-8.2)
[2024-12-04 04:57] LABS: Bilirubin, Total 0.7 mg/dL (0.2-1.0)
[2024-12-04 05:21] LABS: Alanine Aminotransferase 9 U/L (7-40); Blood Urea Nitrogen 7 mg/dL (9-23); Calcium 8.5 mg/dL (8.7-10.4); Chloride 108 mmol/L (98-107)
[2024-12-04] MEDS: GABAPENTIN 300 MG CAP PO SCH (05:46)
[2024-12-04] MEDS: SODIUM CHLOR 0.9% PF (SALINE LOCK) 10ML VIAL/SYR IV SCH (05:48)
[2024-12-04] MEDS: FAMOTIDINE (10MG/ML) 2ML VL IV SCH (10:01)
[2024-12-04] MEDS: hydrALAZINE HCL 20 MG/ML VL IV ONE (10:13)
[2024-12-04] MEDS: HYDROcodone-ACET 5/325MG TAB PO PRN (11:22)
[2024-12-04] MEDS: VANCOMYCIN 750MG KIT 100 ML IV SCH (11:23)
[2024-12-04] MEDS: KETOROLAC TROMETH 30 MG/ML 1ML VIAL IV PRN (15:15)
[2024-12-04] MEDS: ATORVASTATIN 20 MG TAB PO SCH (22:37)
[2024-12-04] MEDS: METOPROLOL TARTRATE 25 MG TAB PO SCH (22:39)
--- NOTE | 2024-12-04 22:54 | ECG ---
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
--- NOTE | 2024-12-04 23:39 | DVHPN2 ---
Subjective The patient is seen and examined at bedside. Complain of shortness for breath and being tired. Reviewed: Care Plan, H&P, Labs, Medications, Previous Orders, Radiology Changes from previous H/P or p: No Changes Eyes: No Pain, No Vision change, No Conjunctivae inflammation, No Eyelid inflammation, No Other, No Redness ENT: No Ear pain, No Ear discharge, No Nose pain, No Nose discharge, No Nose congestion, No Mouth pain, No Mouth swelling, No Throat pain, No Throat swelling, No Other Cardiovascular: No Chest Pain, No Palpitations, No Orthopnea, No Paroxysmal Noc. Dyspnea, No Edema, No Lt Headedness, No Other Respiratory: No Cough, No Dry, No Shortness of breath, No SOB with excertion, No Wheezing, No Hemoptysis, No Pleuritic Pain, No Sputum, No Other Gastrointestinal: No Nausea, No Vomiting, No Abdominal Pain, No Diarrhea, No Constipation, No Melena, No Hematochezia, No Other Genitourinary: No Dysuria, No Frequency, No Incontinence, No Hematuria, No Retention, No Other Musculoskeletal: No other, No neck pain, No shoulder pain, No arm pain, No back pain, No hand pain, No leg pain, No foot pain Skin: No Rash, No Jaundice, No Bruising; Other (Open wound on the back) Objective Vitals Vital Signs Date Time Temp Pulse Resp B/P (MAP) Pulse Ox O2 Delivery O2 Flow Rate FiO2 12/04/24 22:39 62 148/89 12/04/24 21:00 97.9 18 97 97.9 12/04/24 08:00 Room Air* 0 21 Intake/Output Intake and Output 12/04/24 07:00 Intake Total 0 ml Balance 0 ml Intake Oral 0 ml # Voids 1 # Bowel Movements 5 General Appearance: Alert, No acute distress HEENT: Atraumatic, PERRLA, EOMI, Mucous membr. moist/pink Neck: Supple Lungs: Clear to auscultation, Normal air movement Cardiovascular: Regular rate, Normal S1, Normal S2, No murmurs, Gallops, Rubs Abdomen: Normal bowel sounds, Soft, No tenderness Neuro: Cranial nerves 3-12 NL Psych/Mental Status: Mental status NL Medications Current Medications Medications Dose Ordered Sig/Isai Route Start Time Stop Time Status Last Admin Dose Admin Aspirin 81 mg DAILY PO 12/04/24 10:00 12/04/24 10:01 81 MG Atorvastatin Calcium 20 mg HS PO 12/04/24 22:00 12/04/24 22:37 20 MG Duloxetine HCl 30 mg DAILY PO 12/04/24 10:00 12/04/24 10:01 30 MG Gabapentin 300 mg TID PO 12/04/24 06:00 12/04/24 22:37 300 MG Famotidine 20 mg DAILY IV 12/04/24 10:00 12/04/24 10:01 20 MG Sodium Chloride 10 ml Q8HR IV 12/04/24 06:00 12/04/24 22:39 10 ML Acetaminophen/ Hydrocodone Bitart 1 tab Q4HP PRN PO 12/03/24 23:15 Hold 12/04/24 11:22 1 TAB Ondansetron HCl 4 mg Q4HP PRN IV 12/03/24 23:15 Docusate Sodium 100 mg BIDPRN PRN PO 12/03/24 23:15 Acetaminophen 650 mg Q6HP PRN PO 12/03/24 23:15 Nitroglycerin 0.4 mg Q5MINP PRN SL 12/03/24 23:45 Morphine Sulfate 2 mg Q30M PRN IV 12/03/24 23:45 Ceftriaxone Sodium 50 ml @ 100 mls/hr DAILY@09 IV 12/04/24 09:00 12/04/24 10:01 100 MLS/HR Vancomycin HCl 0 ml @ 0 mls/hr UD IV 12/04/24 01:30 Vancomycin HCl 100 ml @ 100 mls/hr Q12H IV 12/04/24 11:00 12/04/24 22:43 100 MLS/HR Metoprolol Tartrate 25 mg BID PO 12/04/24 22:00 Ketorolac Tromethamine 30 mg Q8HPRN PRN IV 12/04/24 14:30 12/09/24 14:29 12/04/24 15:15 30 MG Laboratory Results Laboratory Tests 12/04/24 03:25 Chemistry Test 12/04/24 03:25 Albumin 3.7 g/dL (3.2-4.8) Calcium Level 8.5 mg/dL (8.7-10.4) L Total Protein 6.0 g/dL (5.7-8.2) LFT Test 12/04/24 03:25 Alanine Aminotransferase (ALT) 9 U/L (7-40) Alkaline Phosphatase 64 U/L (46-116) Aspartate Amino Transferase (AST) 12 U/L (13-40) L Total Bilirubin 0.7 mg/dL (0.2-1.0) Microbiology Microbiology Date/Time Source Procedure Growth Status 12/03/24 21:02 Blood Blood Culture - Preliminary NO GROWTH AFTER 24 HOURS OF INCUBATION. Resulted Labs and/or images reviewed: Labs reviewed by me Assessment/Plan Assessment/Plan Metabolic encephalopathy Syncope Cellulitis of back Generalized weakness Continuing current management. Continuing with IV antibiotic vancomycin Rocephin. We will get the patient out of bed and ambulate. This medical document was created using an electronic medical record system with [employer] direct computerized dictation system. Although this document has been carefully reviewed, there may still be some phonetic and typographical errors. These areas are purely typographical due to imperfections of the software programs, and do not reflect any compromise in the patient's medical care. Plan discussed with: Patient My Orders Orders - JOSE KNOX MD Procedure Category Date Status Time Metoprolol Tartrate PHA 12/04/24 In Process Tablet (Lopressor Ta 22:00 Ketorolac Injection PHA 12/04/24 In Process (Toradol Injection) 14:30 Date of Service: Dec 04, 2024 Billing Provider: JOSE KNOX MD Common Visit Codes: [id number] INP/OBS CARE(HIGH) JOSE KNOX MD Dec 04, 2024 23:39
[2024-12-05] VITALS (7 sets, daily range): BP systolic 137–171; BP diastolic 76–98; PULSE 60–65; RESP 18–20; TEMP 98–98.5; O2SAT 99–100
[2024-12-05 07:24] LABS: Hematocrit 40.8 % (41.0-53.0); Hemoglobin 13.5 g/dL (13.5-17.5); Mean Corpuscular Hemoglobin 28.0 pg (28.0-32.0); Mean Corpuscular Volume 84.6 fL (80.0-100.0); Nucleated Red Blood Cells % 0.0 %
[2024-12-05] MEDS: ONDANSETRON HCL 4 MG/2 ML VIAL IV PRN (11:00)
--- NOTE | 2024-12-05 11:33 | DVHPN2 ---
Subjective The patient is seen and examined at bedside. Complain of shortness for breath and being tired. Reviewed: Care Plan, H&P, Labs, Medications, Previous Orders, Radiology Changes from previous H/P or p: No Changes Eyes: No Pain, No Vision change, No Conjunctivae inflammation, No Eyelid inflammation, No Other, No Redness ENT: No Ear pain, No Ear discharge, No Nose pain, No Nose discharge, No Nose congestion, No Mouth pain, No Mouth swelling, No Throat pain, No Throat swelling, No Other Cardiovascular: No Chest Pain, No Palpitations, No Orthopnea, No Paroxysmal Noc. Dyspnea, No Edema, No Lt Headedness, No Other Respiratory: No Cough, No Dry, No Shortness of breath, No SOB with excertion, No Wheezing, No Hemoptysis, No Pleuritic Pain, No Sputum, No Other Gastrointestinal: No Nausea, No Vomiting, No Abdominal Pain, No Diarrhea, No Constipation, No Melena, No Hematochezia, No Other Genitourinary: No Dysuria, No Frequency, No Incontinence, No Hematuria, No Retention, No Other Musculoskeletal: No other, No neck pain, No shoulder pain, No arm pain, No back pain, No hand pain, No leg pain, No foot pain Skin: No Rash, No Jaundice, No Bruising; Other (Open wound on the back) Objective Vitals Vital Signs Date Time Temp Pulse Resp B/P (MAP) Pulse Ox O2 Delivery O2 Flow Rate FiO2 12/05/24 11:04 172/92 12/05/24 10:08 98.3 63 20 100 98.3 12/04/24 20:00 Room Air* 0 21 Intake/Output Intake and Output 12/05/24 07:00 Intake Total 1250 ml Output Total 1780 ml Balance -530 ml Intake Oral 1150 ml IV Total 100 ml Output Urine Total 1780 ml # Bowel Movements 1 General Appearance: Alert, No acute distress HEENT: Atraumatic, PERRLA, EOMI, Mucous membr. moist/pink Neck: Supple Lungs: Clear to auscultation, Normal air movement Cardiovascular: Regular rate, Normal S1, Normal S2, No murmurs, Gallops, Rubs Abdomen: Normal bowel sounds, Soft, No tenderness Neuro: Cranial nerves 3-12 NL Psych/Mental Status: Mental status NL Medications Current Medications Medications Dose Ordered Sig/Isai Route Start Time Stop Time Status Last Admin Dose Admin Aspirin 81 mg DAILY PO 12/04/24 10:00 12/05/24 09:53 81 MG Atorvastatin Calcium 20 mg HS PO 12/04/24 22:00 12/04/24 22:37 20 MG Duloxetine HCl 30 mg DAILY PO 12/04/24 10:00 12/05/24 09:53 30 MG Gabapentin 300 mg TID PO 12/04/24 06:00 12/05/24 05:37 300 MG Famotidine 20 mg DAILY IV 12/04/24 10:00 12/05/24 09:53 20 MG Sodium Chloride 10 ml Q8HR IV 12/04/24 06:00 12/05/24 05:38 10 ML Acetaminophen/ Hydrocodone Bitart 1 tab Q4HP PRN PO 12/03/24 23:15 Hold 12/04/24 11:22 1 TAB Ondansetron HCl 4 mg Q4HP PRN IV 12/03/24 23:15 12/05/24 11:00 4 MG Docusate Sodium 100 mg BIDPRN PRN PO 12/03/24 23:15 Acetaminophen 650 mg Q6HP PRN PO 12/03/24 23:15 Nitroglycerin 0.4 mg Q5MINP PRN SL 12/03/24 23:45 Morphine Sulfate 2 mg Q30M PRN IV 12/03/24 23:45 Ceftriaxone Sodium 50 ml @ 100 mls/hr DAILY@09 IV 12/04/24 09:00 12/05/24 08:06 100 MLS/HR Vancomycin HCl 0 ml @ 0 mls/hr UD IV 12/04/24 01:30 Vancomycin HCl 100 ml @ 100 mls/hr Q12H IV 12/04/24 11:00 12/05/24 11:19 100 MLS/HR Metoprolol Tartrate 25 mg BID PO 12/04/24 22:00 Ketorolac Tromethamine 30 mg Q8HPRN PRN IV 12/04/24 14:30 12/09/24 14:29 12/05/24 08:01 30 MG Amlodipine Besylate 5 mg DAILY PO 12/06/24 10:00 Laboratory Results Laboratory Tests 12/04/24 03:25 12/05/24 05:52 Microbiology Microbiology Date/Time Source Procedure Growth Status 12/03/24 21:02 Blood Blood Culture - Preliminary NO GROWTH AFTER 24 HOURS OF INCUBATION. Resulted Labs and/or images reviewed: Labs reviewed by me Assessment/Plan Assessment/Plan Metabolic encephalopathy Syncope Cellulitis of back Generalized weakness Continuing current management. Continuing with IV antibiotic vancomycin Rocephin. We will get the patient out of bed and ambulate. Discharge planning. This medical document was created using an electronic medical record system with [employer] direct computerized dictation system. Although this document has been carefully reviewed, there may still be some phonetic and typographical errors. These areas are purely typographical due to imperfections of the software programs, and do not reflect any compromise in the patient's medical care. Plan discussed with: Patient My Orders Orders - JOSE KNOX MD Procedure Category Date Status Time Metoprolol Tartrate PHA 12/04/24 In Process Tablet (Lopressor Ta 22:00 Ketorolac Injection PHA 12/04/24 In Process (Toradol Injection) 14:30 Amlodipine Tablet PHA 12/06/24 In Process (Norvasc Tablet) 10:00 Date of Service: Dec 05, 2024 Billing Provider: JOSE KNOX MD Common Visit Codes: [id number] INP/OBS CARE(HIGH) JOSE KNOX MD Dec 05, 2024 11:33
[2024-12-05] MEDS: LORazepam 2MG/ML-1ML VIAL ONE (17:42)
[2024-12-05] MEDS: LORazepam 2MG/ML-1ML VIAL IV ONE (17:45)
[2024-12-05] MEDS: SODIUM CHLORIDE 0.9% 250 ML IV ONE (17:45)
[2024-12-05] MEDS ORDERED: LORazepam 2MG/ML-1ML VIAL IV ONE (17:45)
[2024-12-05 18:12] LABS: Hematocrit 40.9 % (41.0-53.0); Hemoglobin 13.7 g/dL (13.5-17.5); Mean Corpuscular Hemoglobin 28.4 pg (28.0-32.0); Mean Corpuscular Volume 85.0 fL (80.0-100.0); Nucleated Red Blood Cells % 0.1 %
[2024-12-05 18:29] LABS: Alanine Aminotransferase 11 U/L (7-40); Albumin 4.0 g/dL (3.2-4.8); Alkaline Phosphatase 73 U/L (46-116); Anion Gap 11 (5-15); BUN/Creatinine Ratio 12.1 (10.0-20.0); Bilirubin, Total 0.5 mg/dL (0.2-1.0); Blood Urea Nitrogen 13 mg/dL (9-23); Carbon Dioxide 25 mmol/L (20-31); Creatine Kinase IFCC 63 U/L (46-171); Potassium 3.8 mmol/L (3.5-5.1); Sodium 144 mmol/L (136-145); Total Protein 6.3 g/dL (5.7-8.2)
[2024-12-05 18:33] LABS: Calcium 8.7 mg/dL (8.7-10.4); Chloride 108 mmol/L (98-107); Glucose 70 mg/dL (74-106)
[2024-12-05 18:34] LABS: Lactic Acid w/Reflex 2.9 mmol/L (0.4-2.0)
--- NOTE | 2024-12-05 18:45 | DVH ---
EXAM: CT HEAD WITHOUT CONTRAST INDICATION: seizures, rt sided weakness, h/o stroke TECHNIQUE: CT images of the head were obtained without administration of IV contrast. CT scans at [facility] facility use dose modulation, iterative reconstruction, and/or weight based dosing when appropriate to reduce radiation dose to as low as reasonably achievable. COMPARISON: CT HEAD WITHOUT CONTRAST on DOS: 12/03/24 FINDINGS: PARENCHYMA: No acute hemorrhage. There is no mass effect, midline shift, or herniation. There is pres ervation of the khan white differentiation. Mild scattered hypoattenuation along the periventricular, centrum semiovale, and deep white matter tracts, which are nonspecific however statistically most li doris represent chronic microvascular ischemic change. VENTRICLES: No hydrocephalus. EXTRA-AXIAL SPACES: No extra-axial fluid collections. OTHER: The bony structures are intact. Visualized portions of the paranasal sinuses and mastoid air cells are clear. Incomplete fusion anterior arch of C1. IMPRESSION: 1. No CT evidence of an acute intracranial abnormality.
[2024-12-05] MEDS: SODIUM CHLORIDE 0.9% 500 ML IV ONE (20:45)
[2024-12-06] VITALS (11 sets, daily range): BP systolic 144–168; BP diastolic 83–101; PULSE 54–97; RESP 16–18; TEMP 96.5–98.8; O2SAT 92–100
[2024-12-06 10:28] LABS: Urine Protein, UAD Negative (Negative)
[2024-12-06 10:40] LABS: Benzodiazephine Screen, Urine Neg (NEGATIVE)
[2024-12-06 10:41] LABS: Amphetamine Screen, Urine Neg (NEGATIVE); Barbiturate Scree,Urine Neg (NEGATIVE)
[2024-12-06 10:42] LABS: Cannabinoid Screen, Urine Pos (NEGATIVE); Cocaine Screen, Urine Neg (NEGATIVE); Opiate Scree,Urine Neg (NEGATIVE); Phencyclidine Screen, Urine Neg (NEGATIVE)
--- NOTE | 2024-12-06 11:49 | DVHDS2 ---
Discharge Summary Date of Admission Dec 03, 2024 at 23:35 Labs/Diagnostic Data: Laboratory Results Test 12/06/24 09:28 12/06/24 06:16 12/05/24 21:53 12/05/24 19:41 Urine Color Colorless (Yellow) Urine Clarity Clear (Clear) Urine pH 6.5 (5.0-9.0) Urine Specific [place] 1.009 (1.001-1.035) Urine Protein Negative (Negative) Urine Ketones Negative (Negative) Urine Blood Negative /uL (Negative) Urine Nitrite Negative (Negative) Urine Bilirubin Negative (Negative) Urine Urobilinogen Normal mg/dL (Negative) Urine Leukocyte Esterase Negative /uL (Negative) Urine RBC <1 /hpf (0 - 3) Urine Microscopic WBC 1 /HPF (0-3) Urine Squamous Epithelial Cells Few /hpf (<5) Urine Bacteria None seen /hpf (None Seen) Urine Glucose Normal mg/dL (Normal) Creatinine 0.91 mg/dL (0.700-1.30) Glomerular Filtration Rate Calc 93 mL/min (>90) Vancomycin Level Trough 10.0 ug/mL (5-10) Lactic Acid Level 0.8 mmol/L (0.4-2.0) Test 12/05/24 17:45 12/05/24 09:28 12/03/24 20:57 White Blood Count 7.0 10^3/uL (4.4-10.8) Red Blood Count 4.81 10^6/uL (4.5-5.90) Hemoglobin 13.7 g/dL (13.5-17.5) Hematocrit 40.9 % (41.0-53.0) Mean Corpuscular Volume 85.0 fL (80.0-100.0) Mean Corpuscular Hemoglobin 28.4 pg (28.0-32.0) Mean Corpuscular Hemoglobin Concent 33.4 g/dL (32.0-36.0) Red Cell Distribution Width 14.4 % (11.8-14.3) Platelet Count 233 10^3/uL (140-450) Mean Platelet Volume 8.1 fL (6.9-10.8) Neutrophils (%) (Auto) 61.2 % (37.0-80.0) Lymphocytes (%) (Auto) 22.1 % (10.0-50.0) Monocytes (%) (Auto) 11.3 % (0.0-12.0) Eosinophils (%) (Auto) 4.8 % (0.0-7.0) Basophils (%) (Auto) 0.6 % (0.0-2.0) Neutrophils # (Auto) 4.3 10 ^3/uL (1.6-8.6) Lymphocytes # (Auto) 1.5 10 ^3/uL (0.4-5.4) Monocytes # (Auto) 0.8 10 ^3/uL (0-1.3) Eosinophils # (Auto) 0.3 10 ^3/uL (0-0.8) Basophils # (Auto) 0 10 ^3/uL (0-0.2) Nucleated Red Blood Cells 0.1 % Sodium Level 144 mmol/L (136-145) Potassium Level 3.8 mmol/L (3.5-5.1) Chloride Level 108 mmol/L (98-107) Carbon Dioxide Level 25 mmol/L (20-31) Anion Gap 11 (5-15) Blood Urea Nitrogen 13 mg/dL (9-23) BUN/Creatinine Ratio 12.1 (10.0-20.0) Serum Glucose 70 mg/dL (74-106) Calcium Level 8.7 mg/dL (8.7-10.4) Total Bilirubin 0.5 mg/dL (0.2-1.0) Aspartate Amino Transferase (AST) 13 U/L (13-40) Alanine Aminotransferase (ALT) 11 U/L (7-40) Alkaline Phosphatase 73 U/L (46-116) Ammonia 29 umol/L (11-32) Lactate Dehydrogenase 139 U/L (120-246) Creatine Kinase 63 U/L (46-171) B-Type Natriuretic Peptide 72.32 pg/mL (0-100) Total Protein 6.3 g/dL (5.7-8.2) Albumin 4.0 g/dL (3.2-4.8) Plasma/Serum Blood Alcohol < 3.0 mg/dL (<10) Urine Opiates Screen Neg (NEGATIVE) Urine Fentanyl Screen Neg (NEGATIVE) Urine Barbiturates Screen Neg (NEGATIVE) Urine Phencyclidine Screen Neg (NEGATIVE) Urine Amphetamines Screen Neg (NEGATIVE) Urine Benzodiazepines Screen Neg (NEGATIVE) Urine Cocaine Screen Neg (NEGATIVE) Urine Cannabinoids Screen Pos (NEGATIVE) Magnesium Level 2.2 mg/dL (1.6-2.6) Lipase 24 U/L (12-53) Other Laboratory Tests 12/06/24 06:16 12/05/24 17:45 Discharge Instruct/Medications Scheduled Aspirin (Aspirin Low Dose), 81 MG PO DAILY Atorvastatin Calcium (Lipitor), 1 TAB PO QPM, (Reported) Atorvastatin Calcium (Atorvastatin Calcium), 20 MG PO HS Baclofen (Baclofen), 10 MG PO TID, (Reported) Calcium Carbonate (Antacid) (Maalox), 600 MG PO PRN Cephalexin (Keflex Capsule), 2 CAP PO BID Cholecalciferol (D3), 2,000 UNIT PO DAILY, (Reported) Duloxetine Hcl (Cymbalta), 1 CAP PO DAILY, (Reported) Gabapentin (Gabapentin), 1 CAP PO TID, (Reported) Melatonin (Kp Melatonin), 3 MG PO HSPRN, (Reported) Metoprolol Tartrate (Lopressor), 25 MG PO BID Pantoprazole Sodium Sesquihydr (Protonix), 40 MG PO DAILY Sennosides-Docusate Sodium (Senokot S), 1 TAB PO BID, (Reported) Trazodone HCl (Trazodone Hydrocloride), 100 MG PO HS, (Reported) Discharge Statement: "Patient was advised to return to the ER or call 911 if any headaches, dizziness, shortness of breath, chest pain, abdominal pain, bleeding, fevers, or worsening of medical condition. Patient was counseled about treatment plan, medications, possible side effects, patientverbalized understanding. All questions were answered to the best of my ability. This discharge took greater then 30 minutes in planning, reviewing documentation, counseling the patient, and discussing with other team members." ASSESSMENT ASSESSMENT Assessment JOSE KNOX MD Dec 06, 2024 11:49
[2024-12-06] MEDS ORDERED: CEPH250C PO (11:50)
[2024-12-06] MEDS ORDERED: LORazepam 2MG/ML-1ML VIAL IV PRN (12:15)
[2024-12-06] MEDS: LORazepam 2MG/ML-1ML VIAL IV ONE (13:00)
--- NOTE | 2024-12-06 14:35 | DVH ---
CLINICAL HISTORY: Head CT scan hypoattenuation TECHNIQUE: Routine multiplanar imaging of the brain was performed without gadolinium contrast. COMPARISON: CT HEAD WITHOUT CONTRAST on DOS: 12/05/24, CT HEAD WITHOUT CONTRAST on DOS: 12/03/24, CT HEAD WITHOUT CONTRAST on DOS: 06/05/22 FINDINGS: There is no abnormal restricted diffusion to suggest acute infarction. There are a few punctate foci of T2 hyperintensity within the white matter both cerebral hemispheres, of doubtful clinical significance. There is no evidence for acute ischemic changes, mass, mass effect, or extra-axial fluid collection. There is no hydrocephalus or midline shift. The cerebral sulci and subarachnoid cisterns are not effa yomaira. The imaged paranasal sinuses are clear. The globes are intact. The midline structures, including the corpus callosum, are unremarkable. The intracranial flow voids are maintained. IMPRESSION: No acute intracranial abnormality seen. No evidence for acute infarct.
[2024-12-06] MEDS: NITROGLYCERIN 0.4 MG SL TAB SL PRN (17:38)
--- NOTE | 2024-12-06 19:00 | DVHINCON2 ---
Date of service: Dec 06, [address] Knox Reason for Consultation New onset seizures History of Present Illness Mr. Stoll is a 64 years old right-handed gentleman with a history of hypertension, coronary artery disease, heart attack, stroke, asthma, kidney stone, chronic pain in the neck and lumbar spine, the patient came to the [facility] on 12/03/24 with a chief complaint of general weakness, the patient is also had seizure activity in the hospital at this time, he is awake, oriented to person, place, poor historian, the information is obtained from his , I have also reviewed chart and talked to his nurse relates the patient actually had a seizure attack before she called 911, he had one seizure on 12/05/2024 which was witnessed by his nurse, he had two more seizures on 12/06/2024, one was width by his According to his , the two seizure he witnessed started with nonresponsiveness, eyes open, with frequent blinking and mild shaking in the right hand briefly, without incontinence, biting to the tongue/lip The seizure witnessed by his nurse on 12/05/2024 was similar to the two seizures witnessed by his He had a cluster of seizure once in , he is treated in the [place] neuro ICU, but seizure treatment was not recommended because the etiology was not identified In 2015, the patient has had acute left-sided weakness, not able to talk, the patient was seen in a [facility], and the patient was said to have a stroke and was treated with tPA. He had a good recovery from the stroke though with residual left-sided weakness In [id number], he had worsening left-sided weakness, and he was treated in the , where the patient was said to have stroke and received TNK. The patient is not able to walk since the stroke. At home he takes Plavix and a cholesterol medication Secondary to cervical disc degeneration, he has right arm weakness Due to . Injury, he has right leg weakness UDS, 12/05/2024: Cannabinoids CBC, 12/05/2024: Unremarkable CMP, 12/05/2024: Unremarkable Lactic acid, 12/05/2024: 2.9 MRI head, 12/06/2024: No acute intracranial abnormality seen. No evidence for acute infarct. Past Medical History Hypertension, coronary artery disease, heart attack, stroke, asthma, kidney stone Past Surgical History C-spine surgery, lumbar spine surgery Family History: Patient reports no known family medical history. Family History No major medical problems Social History He was tobacco smoker, no history of drug/alcohol abuse Allergies: Coded Allergies: Duloxetine (Verified Adverse Reaction, Mild, N/v, 12/04/24) Per pt he takes zofran with this medication Lisinopril (Verified Adverse Reaction, Mild, Cough, 12/04/24) Mometasone (Verified Adverse Reaction, Mild, Headache, 12/04/24) Home Meds Active Scripts Cephalexin (KEFLEX CAPSULE) 250 Mg Cp, 2 CAP PO BID, #28 CAP Prov:JOSE KNOX MD 12/06/24 Pantoprazole Sodium Sesquihydr (Protonix) 40 Mg Tab, 40 MG PO DAILY for 30 Days, #30 TAB 2 Refills Prov:DAVID CROWELL RESIDENT 09/06/24 Calcium Carbonate (Antacid) (Maalox) 600 Mg Chw, 600 MG PO PRN for 30 Days, #90 TAB.CHEW Prov:DAVID CROWELL RESIDENT 09/06/24 Atorvastatin Calcium (ATORVASTATIN CALCIUM) 20 Mg Tab, 20 MG PO HS for 30 Days, #30 TAB 1 Refill Prov:MANFRED BRONSON DO 06/08/22 Metoprolol Tartrate (Lopressor) 25 Mg Tb, 25 MG PO BID for 30 Days, #60 TAB 1 Refill Prov:MANFRED BRONSON DO 06/08/22 Aspirin (Aspirin Low Dose) 81 Mg Tab, 81 MG PO DAILY for 30 Days, #30 TAB 1 Refill Prov:MANFRED BRONSON DO 06/08/22 Reported Medications Baclofen (Baclofen) 10 Mg Tab, 10 MG PO TID, TAB 06/06/22 Sennosides-Docusate Sodium (Senokot S) 1 Tab Tab, 1 TAB PO BID, #30 TAB 06/06/22 Melatonin (KP MELATONIN) 3 Mg Tab, 3 MG PO HSPRN, TAB 06/06/22 Trazodone HCl (Trazodone Hydrocloride) 100 Mg Tab, 100 MG PO HS, TAB 06/06/22 Duloxetine Hcl (Cymbalta) 20 Mg Cap, 1 CAP PO DAILY, #30 CAP 2 Refills 06/06/22 Cholecalciferol (D3) 2,000 Unit Cap, 2000 UNIT PO DAILY, CAP 06/06/22 Atorvastatin Calcium (Lipitor) 40 Mg Tab, 1 TAB PO QPM, #90 TAB 1 Refill 06/06/22 Gabapentin (Gabapentin) 300 Mg Cap, 1 CAP PO TID, #90 CAP 5 Refills 06/06/22 Current Medications Current Medications Medications (Trade) Dose Ordered Sig/Isai Route PRN Reason Start Time Stop Time Status Last Admin Amlodipine Besylate (Norvasc Tablet) 5 mg DAILY PO 12/06/24 10:00 12/06/24 08:55 Lorazepam (Ativan Inj) 1 mg Q5MIN PRN IV SEIZURES 12/06/24 12:15 Review of Systems As above, the other systems are negative Vital Signs Vital Signs Date Time Temp Pulse Resp B/P (MAP) Pulse Ox O2 Delivery O2 Flow Rate FiO2 12/06/24 18:38 144/85 12/06/24 18:38 98.8 58 16 99 98.8 12/06/24 08:00 Nasal Cannula* 2 28 Physical Exam GENERAL EXAM: General: the patient is well developed and nourished. No acute distress. HEENT: Normocephalic, neck is supple, no carotid bruits. No mass RESPIRATORY: Normal respiratory effort with symmetrical lung expansion. Lungs clear to auscultation. CARDIOVASCULAR: Regular rate and rhythm with no murmurs. S1, S2. ABDOMEN: Soft, nontender, normal bowel sound NEUROLOGICAL: MENTAL STATUS: Awake and alert. Oriented to person, place, poor historian, he needs to think before he answer questions SPEECH, LANGUAGE, HIGHER CORTICAL FUNCTION: no aphasia or dysathria. CRANIAL NERVES: #2: Intact visual van to confrontation. The optic discs were sharp. #3,4,6: Pupils are equal, round and reactive. EOMs full and conjugate. #5: Facial sensation intact in all three divisions bilaterally. Mandibular strength intact. #7: Facial muscles symmetrical and strength intact. #8: Hearing grossly normal to voice. #9,10: Uvula and soft palate rise in the midline. Swallow and voice are normal. #11: Trapezius and sternomastoid strength intact bilaterally. #12: Tongue midline. No fasciculations or atrophy. SENSATION: Sensation to touch and pinprick is diminished in the right arm than leg MOTOR: Normal tone in the upper and lower extremity. Normal muscle bulk. No fasciculations. No abnormal movements or posturing. Muscle strength of the major groups in the upper extremities is 4/5 with right-sided weaker. Muscle strength of the major groups in the lower extremities is: Lt: 3-4/5, Rt: 3/5. REFLEXES: Deep tendon reflexes normal and symmetrical. No pathological reflexes. CEREBELLAR/COORDINATION: Finger to nose is normal bilaterally. GAIT/STATION: deferred. Labs/Diagnostic Data Labs Test 12/06/24 18:08 12/06/24 13:15 12/06/24 09:28 12/06/24 06:16 Range/Units POC Glucose 149 H 70-106 mg/dl Urine Color Colorless Yellow Urine Clarity Clear Clear Urine pH 6.5 5.0-9.0 Urine Specific [place] 1.009 1.001-1.035 Urine Protein Negative Negative Urine Ketones Negative Negative Urine Blood Negative Negative /uL Urine Nitrite Negative Negative Urine Bilirubin Negative Negative Urine Urobilinogen Normal Negative mg/dL Urine Leukocyte Esterase Negative Negative /uL Urine RBC <1 0 - 3 /hpf Urine Microscopic WBC 1 0-3 /HPF Urine Squamous Epithelial Cells Few <5 /hpf Urine Bacteria None seen None Seen /hpf Urine Glucose Normal Normal mg/dL Creatinine 0.91 0.700-1.30 mg/dL Glomerular Filtration Rate Calc 93 >90 mL/min Test 12/05/24 21:53 12/05/24 19:41 12/05/24 17:45 12/05/24 09:28 Range/Units Vancomycin Level Trough 10.0 5-10 ug/mL Lactic Acid Level 0.8 0.4-2.0 mmol/L White Blood Count 7.0 4.4-10.8 10^3/uL Red Blood Count 4.81 4.5-5.90 10^6/uL Hemoglobin 13.7 13.5-17.5 g/dL Hematocrit 40.9 L 41.0-53.0 % Mean Corpuscular Volume 85.0 80.0-100.0 fL Mean Corpuscular Hemoglobin 28.4 28.0-32.0 pg Mean Corpuscular Hemoglobin Concent 33.4 32.0-36.0 g/dL Red Cell Distribution Width 14.4 H 11.8-14.3 % Platelet Count 233 140-450 10^3/uL Mean Platelet Volume 8.1 6.9-10.8 fL Neutrophils (%) (Auto) 61.2 37.0-80.0 % Lymphocytes (%) (Auto) 22.1 10.0-50.0 % Monocytes (%) (Auto) 11.3 0.0-12.0 % Eosinophils (%) (Auto) 4.8 0.0-7.0 % Basophils (%) (Auto) 0.6 0.0-2.0 % Neutrophils # (Auto) 4.3 1.6-8.6 10 ^3/uL Lymphocytes # (Auto) 1.5 0.4-5.4 10 ^3/uL Monocytes # (Auto) 0.8 0-1.3 10 ^3/uL Eosinophils # (Auto) 0.3 0-0.8 10 ^3/uL Basophils # (Auto) 0 0-0.2 10 ^3/uL Nucleated Red Blood Cells 0.1 % Sodium Level 144 136-145 mmol/L Potassium Level 3.8 3.5-5.1 mmol/L Chloride Level 108 H 98-107 mmol/L Carbon Dioxide Level 25 20-31 mmol/L Anion Gap 11 5-15 Blood Urea Nitrogen 13 9-23 mg/dL BUN/Creatinine Ratio 12.1 10.0-20.0 Serum Glucose 70 L 74-106 mg/dL Calcium Level 8.7 8.7-10.4 mg/dL Total Bilirubin 0.5 0.2-1.0 mg/dL Aspartate Amino Transferase (AST) 13 13-40 U/L Alanine Aminotransferase (ALT) 11 7-40 U/L Alkaline Phosphatase 73 46-116 U/L Ammonia 29 11-32 umol/L Lactate Dehydrogenase 139 120-246 U/L Creatine Kinase 63 46-171 U/L B-Type Natriuretic Peptide 72.32 0-100 pg/mL Total Protein 6.3 5.7-8.2 g/dL Albumin 4.0 3.2-4.8 g/dL Plasma/Serum Blood Alcohol < 3.0 <10 mg/dL Urine Opiates Screen Neg NEGATIVE Urine Fentanyl Screen Neg NEGATIVE Urine Barbiturates Screen Neg NEGATIVE Urine Phencyclidine Screen Neg NEGATIVE Urine Amphetamines Screen Neg NEGATIVE Urine Benzodiazepines Screen Neg NEGATIVE Urine Cocaine Screen Neg NEGATIVE Urine Cannabinoids Screen Pos NEGATIVE Test 10/18/25 20:57 Range/Units Magnesium Level 2.2 1.6-2.6 mg/dL Lipase 24 12-53 U/L Microbiology Date/Time Source Procedure Growth Status 12/03/24 21:02 Blood Blood Culture - Preliminary NO GROWTH AFTER 48 HOURS OF INCUBATION. 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 for pain control Up to chair Physical therapy More recommendation per clinical course Prognosis: Poor This medical document was created using an electronic medical record system with [employer] dictation system. Although this document has been carefully reviewed, there may still be some phonetic and typographical errors. These a reas are purely typographical due to imperfections of the software programs, and do not reflect any compromise in the patient's medical care. Plan discussed with: Patient, Spouse, Other LULI CHAPPELL MD Dec 06, 2024 19:00
--- NOTE | 2024-12-06 20:19 | DVHPN2 ---
Subjective The patient is seen and examined at bedside. Complain of shortness for breath and being tired. Even overnight note. The patient was confuse, has "convulsion" witness by his RN Reviewed: Care Plan, H&P, Labs, Medications, Previous Orders, Radiology Changes from previous H/P or p: No Changes Eyes: No Pain, No Vision change, No Conjunctivae inflammation, No Eyelid inflammation, No Other, No Redness ENT: No Ear pain, No Ear discharge, No Nose pain, No Nose discharge, No Nose congestion, No Mouth pain, No Mouth swelling, No Throat pain, No Throat swelling, No Other Cardiovascular: No Chest Pain, No Palpitations, No Orthopnea, No Paroxysmal Noc. Dyspnea, No Edema, No Lt Headedness, No Other Respiratory: No Cough, No Dry, No Shortness of breath, No SOB with excertion, No Wheezing, No Hemoptysis, No Pleuritic Pain, No Sputum, No Other Gastrointestinal: No Nausea, No Vomiting, No Abdominal Pain, No Diarrhea, No Constipation, No Melena, No Hematochezia, No Other Genitourinary: No Dysuria, No Frequency, No Incontinence, No Hematuria, No Retention, No Other Musculoskeletal: No other, No neck pain, No shoulder pain, No arm pain, No back pain, No hand pain, No leg pain, No foot pain Skin: No Rash, No Jaundice, No Bruising; Other (Open wound on the back) Objective Vitals Vital Signs Date Time Temp Pulse Resp B/P (MAP) Pulse Ox O2 Delivery O2 Flow Rate FiO2 12/06/24 20:00 64 16 99 Nasal Cannula* 2 28 12/06/24 18:38 144/85 12/06/24 18:38 98.8 98.8 Intake/Output Intake and Output 12/06/24 07:00 Intake Total 1880 ml Output Total 1670 ml Balance 210 ml Intake Oral 1180 ml IV Total 700 ml Output Urine Total 1670 ml General Appearance: Alert, No acute distress HEENT: Atraumatic, PERRLA, EOMI, Mucous membr. moist/pink Neck: Supple Lungs: Clear to auscultation, Normal air movement Cardiovascular: Regular rate, Normal S1, Normal S2, No murmurs, Gallops, Rubs Abdomen: Normal bowel sounds, Soft, No tenderness Neuro: Cranial nerves 3-12 NL Psych/Mental Status: Mental status NL Medications Current Medications Medications Dose Ordered Sig/Isai Route Start Time Stop Time Status Last Admin Dose Admin Aspirin 81 mg DAILY PO 12/04/24 10:00 12/06/24 08:54 81 MG Atorvastatin Calcium 20 mg HS PO 12/04/24 22:00 12/05/24 21:50 20 MG Duloxetine HCl 30 mg DAILY PO 12/04/24 10:00 12/06/24 08:54 30 MG Gabapentin 300 mg TID PO 12/04/24 06:00 12/06/24 14:27 300 MG Famotidine 20 mg DAILY IV 12/04/24 10:00 12/06/24 08:54 20 MG Sodium Chloride 10 ml Q8HR IV 12/04/24 06:00 12/06/24 14:27 10 ML Acetaminophen/ Hydrocodone Bitart 1 tab Q4HP PRN PO 12/03/24 23:15 Hold 12/04/24 11:22 1 TAB Ondansetron HCl 4 mg Q4HP PRN IV 12/03/24 23:15 12/06/24 09:05 4 MG Docusate Sodium 100 mg BIDPRN PRN PO 12/03/24 23:15 Acetaminophen 650 mg Q6HP PRN PO 12/03/24 23:15 Nitroglycerin 0.4 mg Q5MINP PRN SL 12/03/24 23:45 12/06/24 17:38 0.4 MG Morphine Sulfate 2 mg Q30M PRN IV 12/03/24 23:45 Ceftriaxone Sodium 50 ml @ 100 mls/hr DAILY@09 IV 12/04/24 09:00 12/06/24 08:42 100 MLS/HR Vancomycin HCl 0 ml @ 0 mls/hr UD IV 12/04/24 01:30 Vancomycin HCl 100 ml @ 100 mls/hr Q12H IV 12/04/24 11:00 12/06/24 11:39 100 MLS/HR Metoprolol Tartrate 25 mg BID PO 12/04/24 22:00 Amlodipine Besylate 5 mg DAILY PO 12/06/24 10:00 12/06/24 08:55 5 MG Lorazepam 1 mg Q5MIN PRN IV 12/06/24 12:15 Ketorolac Tromethamine 30 mg [id number] PRN IV 12/06/24 19:15 12/09/24 14:29 UNV Laboratory Results Laboratory Tests 12/05/24 17:45 12/06/24 06:16 Urinalysis Test 12/06/24 09:28 Urine Color Colorless (Yellow) Urine Clarity Clear (Clear) Urine pH 6.5 (5.0-9.0) Urine Specific [place] 1.009 (1.001-1.035) Urine Protein Negative (Negative) Urine Ketones Negative (Negative) Urine Blood Negative /uL (Negative) Urine Nitrite Negative (Negative) Urine Bilirubin Negative (Negative) Urine Urobilinogen Normal mg/dL (Negative) Urine Leukocyte Esterase Negative /uL (Negative) Urine RBC <1 /hpf (0 - 3) Urine Microscopic WBC 1 /HPF (0-3) Urine Squamous Epithelial Cells Few /hpf (<5) Urine Bacteria None seen /hpf (None Seen) Urine Glucose Normal mg/dL (Normal) Microbiology Microbiology Date/Time Source Procedure Growth Status 12/03/24 21:02 Blood Blood Culture - Preliminary NO GROWTH AFTER 48 HOURS OF INCUBATION. Resulted Labs and/or images reviewed: Labs reviewed by me Assessment/Plan Assessment/Plan Metabolic encephalopathy Syncope Cellulitis of back Generalized weakness History of CVA x 2 ?Seizure episode. Continuing current management. Continuing with IV antibiotic vancomycin Rocephin. We will get the patient out of bed and ambulate. Patient has another CT head done last night and was normal. His speech is slurred. Still weak Will order MRI of brain Will consult neurologist. will give ativan 1mg IV q 5 min x 3 max for acting seizure. Will order UDS This medical document was created using an electronic medical record system with [employer] direct computerized dictation system. Although this document has been carefully reviewed, there may still be some phonetic and typographical errors. These areas are purely typographical due to imperfections of the software programs, and do not reflect any compromise in the patient's medical care. Plan discussed with: Patient, Spouse, Other (sister) My Orders Orders - JOSE KNOX MD Procedure Category Date Status Time Communication Order ORDERS 12/06/24 Transmitted 07:57 Brain Head Wo Contrast MRI 12/06/24 Resulted 12:12 Pt Request For Service PT 12/06/24 Logged 12:12 * Neurology Consult CONS 12/06/24 Transmitted 12:12 Lorazepam 2mg/Ml Inj PHA 12/06/24 In Process (Ativan Inj) 12:15 Ketorolac Injection PHA 12/06/24 Logged (Toradol Injection) 19:15 Date of Service: Dec 06, 2024 Billing Provider: JOSE KNOX MD Common Visit Codes: [id number] INP/OBS CARE(HIGH) JOSE KNOX MD Dec 06, 2024 20:19
[2024-12-06 22:48] LABS: Benzodiazephine Screen, Urine Neg (NEGATIVE)
[2024-12-06 22:49] LABS: Cannabinoid Screen, Urine Pos (NEGATIVE)
[2024-12-06 22:52] LABS: Amphetamine Screen, Urine Neg (NEGATIVE); Barbiturate Scree,Urine Neg (NEGATIVE); Cocaine Screen, Urine Neg (NEGATIVE); Opiate Scree,Urine Neg (NEGATIVE); Phencyclidine Screen, Urine Neg (NEGATIVE)
[2024-12-07 01:00] VITALS: BP 147/89; PULSE 57; RESP 18; TEMP 98.2; O2SAT 100
[2024-12-07] MEDS: KETOROLAC TROMETH 30 MG/ML 1ML VIAL IV PRN (03:54)
[2024-12-07 05:00] VITALS: BP 144/90; PULSE 60; RESP 18; TEMP 98.2; O2SAT 98
[2024-12-07 08:00] VITALS: PULSE 62; RESP 20; O2SAT 100
[2024-12-07 08:58] VITALS: BP 158/99; PULSE 58; RESP 20; TEMP 98.3; O2SAT 100
--- NOTE | 2024-12-07 10:20 | DVHDS2 ---
Discharge Summary Date of Admission Dec 03, 2024 at 23:35 Date of Discharge: Dec 07, 2024 Admitting Diagnosis Metabolic encephalopathy Syncope Cellulitis of back Generalized weakness Labs/Diagnostic Data: Laboratory Results Test 12/07/24 06:21 12/06/24 20:09 12/06/24 13:15 12/06/24 09:28 Creatinine 0.89 mg/dL (0.700-1.30) Glomerular Filtration Rate Calc 95 mL/min (>90) Troponin I High Sensitivity 4 ng/L (</=54) POC Glucose 149 mg/dl (70-106) Urine Color Colorless (Yellow) Urine Clarity Clear (Clear) Urine pH 6.5 (5.0-9.0) Urine Specific [place] 1.009 (1.001-1.035) Urine Protein Negative (Negative) Urine Ketones Negative (Negative) Urine Blood Negative /uL (Negative) Urine Nitrite Negative (Negative) Urine Bilirubin Negative (Negative) Urine Urobilinogen Normal mg/dL (Negative) Urine Leukocyte Esterase Negative /uL (Negative) Urine RBC <1 /hpf (0 - 3) Urine Microscopic WBC 1 /HPF (0-3) Urine Squamous Epithelial Cells Few /hpf (<5) Urine Bacteria None seen /hpf (None Seen) Urine Glucose Normal mg/dL (Normal) Urine Opiates Screen Neg (NEGATIVE) Urine Fentanyl Screen Neg (NEGATIVE) Urine Barbiturates Screen Neg (NEGATIVE) Urine Phencyclidine Screen Neg (NEGATIVE) Urine Amphetamines Screen Neg (NEGATIVE) Urine Benzodiazepines Screen Neg (NEGATIVE) Urine Cocaine Screen Neg (NEGATIVE) Urine Cannabinoids Screen Pos (NEGATIVE) Test 12/05/24 21:53 12/05/24 19:41 12/05/24 17:45 12/03/24 20:57 Vancomycin Level Trough 10.0 ug/mL (5-10) Lactic Acid Level 0.8 mmol/L (0.4-2.0) White Blood Count 7.0 10^3/uL (4.4-10.8) Red Blood Count 4.81 10^6/uL (4.5-5.90) Hemoglobin 13.7 g/dL (13.5-17.5) Hematocrit 40.9 % (41.0-53.0) Mean Corpuscular Volume 85.0 fL (80.0-100.0) Mean Corpuscular Hemoglobin 28.4 pg (28.0-32.0) Mean Corpuscular Hemoglobin Concent 33.4 g/dL (32.0-36.0) Red Cell Distribution Width 14.4 % (11.8-14.3) Platelet Count 233 10^3/uL (140-450) Mean Platelet Volume 8.1 fL (6.9-10.8) Neutrophils (%) (Auto) 61.2 % (37.0-80.0) Lymphocytes (%) (Auto) 22.1 % (10.0-50.0) Monocytes (%) (Auto) 11.3 % (0.0-12.0) Eosinophils (%) (Auto) 4.8 % (0.0-7.0) Basophils (%) (Auto) 0.6 % (0.0-2.0) Neutrophils # (Auto) 4.3 10 ^3/uL (1.6-8.6) Lymphocytes # (Auto) 1.5 10 ^3/uL (0.4-5.4) Monocytes # (Auto) 0.8 10 ^3/uL (0-1.3) Eosinophils # (Auto) 0.3 10 ^3/uL (0-0.8) Basophils # (Auto) 0 10 ^3/uL (0-0.2) Nucleated Red Blood Cells 0.1 % Sodium Level 144 mmol/L (136-145) Potassium Level 3.8 mmol/L (3.5-5.1) Chloride Level 108 mmol/L (98-107) Carbon Dioxide Level 25 mmol/L (20-31) Anion Gap 11 (5-15) Blood Urea Nitrogen 13 mg/dL (9-23) BUN/Creatinine Ratio 12.1 (10.0-20.0) Serum Glucose 70 mg/dL (74-106) Calcium Level 8.7 mg/dL (8.7-10.4) Total Bilirubin 0.5 mg/dL (0.2-1.0) Aspartate Amino Transferase (AST) 13 U/L (13-40) Alanine Aminotransferase (ALT) 11 U/L (7-40) Alkaline Phosphatase 73 U/L (46-116) Ammonia 29 umol/L (11-32) Lactate Dehydrogenase 139 U/L (120-246) Creatine Kinase 63 U/L (46-171) B-Type Natriuretic Peptide 72.32 pg/mL (0-100) Total Protein 6.3 g/dL (5.7-8.2) Albumin 4.0 g/dL (3.2-4.8) Plasma/Serum Blood Alcohol < 3.0 mg/dL (<10) Magnesium Level 2.2 mg/dL (1.6-2.6) Lipase 24 U/L (12-53) Other Laboratory Tests 12/07/24 06:21 12/05/24 17:45 Brief Hx & Hospital Course: 64 years old male with past medical history of asthma, CVA, [place], kidney stone and hypertension come to emergency department because of generalized weakness. The patient experienced weakness, tired, associated with headache, dizziness for one day. He does have a wound in his back and received IV antibiotic. The patient was started on Rocephin in the hospital and the wound improved. His head CT showed no acute intracranial abnormality. On the day prior to discharge the patient started having an episode of blank stare and also convulsion witness by RN. . Repeat CT head was done showed no acute process. Neurology was consulted. Dr. Duron see the patient. Recommend MRI of the brain. The MRI of the brain showed no acute process. Per Dr. Duron the conversion this not significant for seizure activity. So the patient will be discharged home today with Keflex to continue treat his infection cellulitis on his back. Activity as tolerated. Diet low-salt low-cholesterol diet. Follow up with primary care physician 1-2 weeks. Physical examined HEENT: Normocephalic atraumatic pupils equal react to light and accommodation. Extraocular muscles intact, conjunctiva pink, oropharynx moist, no thrush, no exudate. Lymphatic: No lymphadenopathy Cardiovascular exam: S1, S2 was heard. No murmurs, rubs, gallops Lung: Clear on auscultation bilaterally, no wheeze, rale, rhonchi. GI: Abdominal soft, nondistended, nontenderness, positive bowel sounds. Extremity: No crepitus, cyanosis, edema. Pedal pulses present bilateral. Full range of motion. Skin: Normal turgor, no rash. Psych: Alert, oriented x3. Neurology: No focal deficits, cranial nerve II to XII grossly intact. This medical document was created using an electronic medical record system with [employer] direct computerized dictation system. Although this document has been carefully reviewed, there may still be some phonetic and typographical errors. These areas are purely typographical due to imperfections of the software programs, and do not reflect any compromise in the patient's medical care. Condition at Discharge: Stable Final Diagnosis/Problems List Metabolic encephalopathy Syncope Cellulitis of back Generalized weakness History of CVA x 2 per patient's history ?Seizure episode. However evaluate in by new neurologist showed no seizure. Patient had episode of questionable convulsion. Discharge Disposition: Home Discharge Instruct/Medications Scheduled Aspirin (Aspirin Low Dose), 81 MG PO DAILY Atorvastatin Calcium (Lipitor), 1 TAB PO QPM, (Reported) Atorvastatin Calcium (Atorvastatin Calcium), 20 MG PO HS Baclofen (Baclofen), 10 MG PO TID, (Reported) Calcium Carbonate (Antacid) (Maalox), 600 MG PO PRN Cephalexin (Keflex Capsule), 2 CAP PO BID Cholecalciferol (D3), 2,000 UNIT PO DAILY, (Reported) Duloxetine Hcl (Cymbalta), 1 CAP PO DAILY, (Reported) Gabapentin (Gabapentin), 1 CAP PO TID, (Reported) Melatonin (Kp Melatonin), 3 MG PO HSPRN, (Reported) Metoprolol Tartrate (Lopressor), 25 MG PO BID Pantoprazole Sodium Sesquihydr (Protonix), 40 MG PO DAILY Sennosides-Docusate Sodium (Senokot S), 1 TAB PO BID, (Reported) Trazodone HCl (Trazodone Hydrocloride), 100 MG PO HS, (Reported) Discharge Statement: "Patient was advised to return to the ER or call 911 if any headaches, dizziness, shortness of breath, chest pain, abdominal pain, bleeding, fevers, or worsening of medical condition. Patient was counseled about treatment plan, medications, possible side effects, patientverbalized understanding. All questions were answered to the best of my ability. This discharge took greater then 30 minutes in planning, reviewing documentation, counseling the patient, and discussing with other team members." ASSESSMENT ASSESSMENT Assessment Date of Service: Dec 07, 2024 Billing Provider: JOSE KNOX MD Common Visit Codes: [id number] DISCH DAY >30min JOSE KNOX MD Dec 07, 2024 10:20
--- NOTE | 2024-12-07 10:35 | DVHPN2 ---
Progress Note - Dictate Date Seen: Dec 07, 2024 Medical Necessity Reason Pt with a Central, PICC or Fol: No Subjective Mr. Stoll is a 64 years old right-handed gentleman with a history of hypertension, coronary artery disease, heart attack, stroke, asthma, kidney stone, chronic pain in the neck and lumbar spine, the patient came to the [facility] on 12/03/24 with a chief complaint of general weakness, the patient also had seizure activity in the hospital I have seen and examined the patient, I have talked to his nurse, in the room with him. The case has been discussed with Dr. Charles No seizure activity overnight or in the morning He is alert, oriented to person, place, he needs to think hard to answer my questions UDS, 12/05/2024: Cannabinoids CBC, 12/05/2024: Unremarkable CMP, 12/05/2024: Unremarkable Lactic acid, 12/05/2024: 2.9 MRI head, 12/06/2024: No acute intracranial abnormality seen. No evidence for acute infarct. vital signs Vital Sign Date Time Temp Pulse Resp B/P (MAP) Pulse Ox O2 Delivery O2 Flow Rate FiO2 12/07/24 08:58 98.3 58 20 158/99 (118) 100 98.3 12/06/24 20:00 Nasal Cannula* 2 28 Total Intake and Output 12/06/24 12/06/24 12/07/24 15:00 23:00 07:00 Intake Total 410 ml 300 ml 400 ml Output Total 700 ml 120 ml 400 ml Balance -290 ml 180 ml 0 ml medications Current Medications Medications Dose Ordered Sig/Isai Route Start Time Stop Time Status Last Admin Dose Admin Aspirin 81 mg DAILY PO 12/04/24 10:00 12/06/24 08:54 81 MG Atorvastatin Calcium 20 mg HS PO 12/04/24 22:00 12/06/24 20:56 20 MG Duloxetine HCl 30 mg DAILY PO 12/04/24 10:00 12/06/24 08:54 30 MG Gabapentin 300 mg TID PO 12/04/24 06:00 12/07/24 05:49 300 MG Famotidine 20 mg DAILY IV 12/04/24 10:00 12/06/24 08:54 20 MG Sodium Chloride 10 ml Q8HR IV 12/04/24 06:00 12/07/24 05:54 10 ML Acetaminophen/ Hydrocodone Bitart 1 tab Q4HP PRN PO 12/03/24 23:15 Hold 12/04/24 11:22 1 TAB Ondansetron HCl 4 mg Q4HP PRN IV 12/03/24 23:15 12/06/24 09:05 4 MG Docusate Sodium 100 mg BIDPRN PRN PO 12/03/24 23:15 Acetaminophen 650 mg Q6HP PRN PO 12/03/24 23:15 Nitroglycerin 0.4 mg Q5MINP PRN SL 12/03/24 23:45 12/06/24 17:38 0.4 MG Morphine Sulfate 2 mg Q30M PRN IV 12/03/24 23:45 Ceftriaxone Sodium 50 ml @ 100 mls/hr DAILY@09 IV 12/04/24 09:00 12/06/24 08:42 100 MLS/HR Vancomycin HCl 0 ml @ 0 mls/hr UD IV 12/04/24 01:30 Vancomycin HCl 100 ml @ 100 mls/hr Q12H IV 12/04/24 11:00 12/06/24 23:12 100 MLS/HR Metoprolol Tartrate 25 mg BID PO 12/04/24 22:00 Amlodipine Besylate 5 mg DAILY PO 12/06/24 10:00 12/06/24 08:55 5 MG Lorazepam 1 mg Q5MIN PRN IV 12/06/24 12:15 Ketorolac Tromethamine 30 mg [id number] PRN IV 12/06/24 19:15 12/09/24 14:29 12/07/24 03:54 30 MG objective General: the patient is well developed and nourished. No acute distress. MENTAL STATUS: Subjective SPEECH, LANGUAGE, HIGHER CORTICAL FUNCTION: no aphasia or dysathria. CRANIAL NERVES: Pupils are equal, round and reactive. EOMs full and conjugate. Facial sensation intact in all three divisions bilaterally. Mandibular strength intact. Facial muscles symmetrical and strength intact. SENSATION: Sensation to touch and pinprick is diminished in the right arm than leg MOTOR: Normal tone in the upper and lower extremity. Normal muscle bulk. No fasciculations. No abnormal movements or posturing. Muscle strength of the major groups in the upper extremities is 4/5 with right-sided weaker. Muscle strength of the major groups in the lower extremities is: Lt: 3-4/5, Rt: 3/5. REFLEXES: Deep tendon reflexes normal and symmetrical. No pathological reflexes. CEREBELLAR/COORDINATION: Finger to nose is normal bilaterally. 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 for pain control Up to chair Physical therapy More recommendation per clinical course Okay to discharge from a neurologic point of view This medical document was created using an electronic medical record system with [employer] dictation system. Although this document has been carefully reviewed, there may still be some phonetic and typographical errors. These areas are purely typographical due to imperfections of the software programs, and do not reflect any compromise in the patient's medical care. Prognosis poor Plan discussed with: Spouse, Other Total Time (mins): 40 LULI CHAPPELL MD Dec 07, 2024 10:35
[2024-12-07 12:39] VITALS: BP 165/101; PULSE 63; RESP 20; TEMP 98.1; O2SAT 100
--- NOTE | 2024-12-09 06:57 | ECG ---
[facility] Test Date: 2024-12-06 Test Time: 16:51:47 Pat Name: DOM MCKEON Department: Room: 0281T B Gender: M Pricing Analyst: WARREN : 1960 Requested By: JOSE KNOX Order Number: [id number] Reading MD: Measurements Intervals [place] Rate: 58 P: 68 [place]: 173 QRS: -9 QRSD: 91 T: 79 QT: 425 QTc: 418 Interpretive Statements Sinus rhythm Borderline low voltage, extremity leads Consider RVH or posterior infarct Please click the below link to view image of tracing.
== END 2024-12-07 15:00 | disposition home or self-care (01) | DRG 602 ==
LOC: EDBD 20:11 → ER 20:11 → OVERFLOW 23:35 → TELE-WESTW 12-04 04:30
PROVIDERS: ADMIT Internal Medicine; ATTEND Internal Medicine
DX: L03.312 Cellulitis of back [any part except buttock and flank] (principal); G93.41 Metabolic encephalopathy; I69.354 Hemiplegia and hemiparesis following cerebral infarction affecting left non-dominant side; G40.909 Epilepsy, unspecified, not intractable, without status epilepticus; J45.909 Unspecified asthma, uncomplicated; I25.10 Atherosclerotic heart disease of native coronary artery without angina pectoris; I10 Essential (primary) hypertension; F17.200 Nicotine dependence, unspecified, uncomplicated; G89.29 Other chronic pain; I25.2 Old myocardial infarction; Z87.442 Personal history of urinary calculi; Z79.899 Other long term (current) drug therapy; Z79.82 Long term (current) use of aspirin; Z79.02 Long term (current) use of antithrombotics/antiplatelets
CPT/HCPCS: 36415; 70450; 70551; 71045; 80053; 80202; 80307; 80320; 81001; 82140; 82550; 82565; 82962; 83605; 83615; 83690; 83735; 83880; 84484; 85025; 87040; 93005; 96361; 96365; 97163; G0378; J1885; J2405; J3490